=== PATIENT | female | born 1945 | race Caucasian/White ===

== ENCOUNTER 2016-04-21 16:43 | Emergency (ER) | payer MEDICARE ==
--- NOTE | 2016-04-21 18:09 | REP ---
Clinical: Trauma. Technique: AP, lateral, bilateral oblique and sunrise views of the left knee. Findings: Mild tricompartmental osteoarthritic degenerative changes are appreciated. No acute fracture dislocation. No effusion. Impression: Mild tricompartmental osteoarthritic degenerative changes. No acute fracture or dislocation. Signed by Sukhdeep Simon MD 04/21/2016 06:01 P
[2016-04-21] MEDS ORDERED: NORCO 5/325MG TABLET (BULK) As Ordered ONE (20:15)
--- NOTE | 2016-04-21 20:28 | EDDOCDS ---
Physician Documentation [facility] Name: Sandy Mills Age: 70 yrs Sex: Female : 1945 Arrival Date: 04/21/2016 Time: 16:43 Bed Triage 3 Private MD: Nils Contreras Disposition: 04/21/16 20:11 Discharged to Home/Self Care. Impression: Sprain of medial collateral ligament of left knee. - Condition is Stable. - Discharge Instructions: Knee Sprain, Knee Pain. - Prescriptions for Arrey 5- 325 mg Oral Tablet - take 1 tablet by ORAL route every 6 hours As needed MDD: 4 tabs; 12 tablet. - Medication Reconciliation, Local Pharmacy Hours form. - Follow up: Fredo Robbins; When: Call to arrange an appointment; Reason: Recheck today's complaints, Continuance of care. Follow up: Nils Tuttle; When: Call to arrange an appointment; Reason: Recheck today's complaints, Continuance of care. - Problem is new. - Symptoms are unchanged. Historical: - Allergies: SULFA (SULFONAMIDES) (Anaphylaxis); - Home Meds: 1. Lipitor 40 mg Oral tab 1 tab once daily 2. levothyroxine 25 mcg Oral tab 1 tab once daily 3. trazodone 50 mg Oral tab nightly 4. ibuprofen 600 mg oral tab as needed (Last dose: 04/21/2016 14:30) - PMHx: Thyroid problem; Hypercholesterolemia; insomnia; - PSHx: Hysterectomy; Arthroscopy, Knee- Right; - Social history: Smoking status: Patient states former smoker of tobacco. No barriers to communication noted, The patient speaks fluent Icelandic. - Family history: Not pertinent. - : The pt / caregiver states he / she is not on anticoagulants. Home medication list is obtained from the patient. - Exposure Risk Screening:: None identified. Vital Signs: 04/21 16:45 BP 142 / 71; Pulse 87; Resp 16; Temp 97.7(O); Pulse Ox 100% on R/A; Weight 67.13 kg / lr2 148 lbs; Height 5 ft. 4 in. (162.56 cm); Pain 8/10; 16:45 Body Mass Index 25.40 (67.13 kg, 162.56 cm) lr2 MDM: 17:41 Knee, Complete Ordered. EDMS 20:10 Jostin Wrap ordered. mo1 20:10 HYDROcodone-acetaminophen 4 pack- 5 mg-325 mg 1 packets PO Per package directions; mo1 Dispense with patient. 1 po q4h prn for pain ordered. 20:10 Knee, Complete Reviewed. mo1 Administered Medications: 20:17 Drug: HYDROcodone-acetaminophen 4 pack- 1 packets [hydrocodone 5 mg-acetaminophen 325 ms18 mg tablet (1 tabs)] {Co-Signature: mcp (Karina Graham RN).} Route: PO; Signatures: Dispatcher [employer] EDKaylen Mace RN RN kcs Peters, Mary, RN RN mcp Sav Hilario PA PA mo1 Gris Turner RN ms18 Karina Graham RN, mcp MTDD
--- NOTE | 2016-04-21 20:28 | EDDOCDS ---
Nurse's Notes [facility] Name: Sandy Mills Age: 70 yrs Sex: Female : 1945 Arrival Date: 04/21/2016 Time: 16:43 Bed Triage 3 Private MD: Nils Contreras Diagnosis: Sprain of medial collateral ligament of left knee Presentation: 04/21 17:03 Presenting complaint: Patient states: her left knee snapped today and since she has had kcs difficulty walking on it due to pain. Adult Sepsis Screening: The patient does not have new or worsening altered mentation. Patient's respiratory rate is less than 22. Systolic blood pressure is greater than 100. Patient has a qSOFA score of 0- Negative Sepsis Screen. Suicide/Homicide risk assessment- the patient denies having any suicidal and/or homicidal ideations and does not present with any other emotional, behavioral or mental health complaints. Status: Patient is not a sales and service consultant or dependent. Transition of care: patient was not received from another setting of care. 17:03 Acuity: TAYLOR Level 4 kcs 17:03 Method Of Arrival: Wheelchair kcs Triage Assessment: 17:06 General: Appears comfortable, obese, well developed, well nourished, well groomed, kcs Behavior is cooperative, pleasant. Pain: Location: left knee Pain At worst was 10 out of 10 on a pain scale. Neurological: Level of Consciousness is awake, alert. Respiratory: Airway is patent Respiratory effort is even, unlabored, Respiratory pattern is regular, symmetrical. Derm: Skin is intact, is healthy with good turgor, Skin is dry, Skin is normal. Historical: - Allergies: SULFA (SULFONAMIDES) (Anaphylaxis); - Home Meds: 1. Lipitor 40 mg Oral tab 1 tab once daily 2. levothyroxine 25 mcg Oral tab 1 tab once daily 3. trazodone 50 mg Oral tab nightly 4. ibuprofen 600 mg oral tab as needed (Last dose: 04/21/2016 14:30) - PMHx: Thyroid problem; Hypercholesterolemia; insomnia; - PSHx: Hysterectomy; Arthroscopy, Knee- Right; - Social history: Smoking status: Patient states former smoker of tobacco. No barriers to communication noted, The patient speaks fluent Occitan. - Family history: Not pertinent. - : The pt / caregiver states he / she is not on anticoagulants. Home medication list is obtained from the patient. - Exposure Risk Screening:: None identified. Screenin:25 Screening information is obtained from the patient. Fall risk: No risks identified. mcp Assistance ADL's: requires no assistance with activities of daily living. Abuse/DV Screen: The patient / caregiver reports he/she is: not in a situation that causes fear, pain or injury. Nutritional screening: No deficits noted. Advance Directives: There is no active DNR order. home support is adequate. Assessment: 20:24 General: Appears uncomfortable, Behavior is cooperative. Pain: Location: left knee Pain mcp currently is 5 out of 10 on a pain scale. Neurological: No deficits noted. Respiratory: Airway is patent Respiratory effort is even, unlabored. Derm: Skin is pink, warm & dry. Musculoskeletal: Circulation, motion, and sensation intact. Vital Signs: 16:45 BP 142 / 71; Pulse 87; Resp 16; Temp 97.7(O); Pulse Ox 100% on R/A; Weight 67.13 kg; lr2 Height 5 ft. 4 in. (162.56 cm); Pain 8/10; 16:45 Body Mass Index 25.40 (67.13 kg, 162.56 cm) lr2 Vitals: 16:45 Log In Time: April 21, 2016 at 16:43. lr2 ED Course: 16:45 Patient visited by Yumiko Brooks. lr2 16:45 Nils Contreras is Private Physician. lr2 16:45 Patient moved to Waiting lr2 16:45 Patient moved to Pre RCE lr2 17:04 Triage Initiated kcs 18:19 Knee, Complete Returned. EDMS 19:13 Patient moved to Triage 3 ms18 19:18 Patient visited by Gris Turner RN. ms18 19:48 Sav Hilario PA is PHCP. mo1 19:48 Pablo Bell MD is Attending Physician. mo1 20:10 Patient visited by Sav Hilario PA. mo1 20:11 Fredo Robbins is Referral Physician. mo1 20:11 Nils Tuttle is Referral Physician. mo1 20:25 The patient / caregiver is instructed regarding the plan of care and ED course. Patient mcp has correct armband on for positive identification. Bed in low position. Call light in reach. 20:25 No IV's were initiated during this patient's visit. No procedures done that require mcp assistance. 20:25 Jostin wrap to given to pt to apply to left knee when gets home per pts request. mcp Administered Medications: 20:17 Drug: HYDROcodone-acetaminophen 4 pack- 1 packets [hydrocodone 5 mg-acetaminophen 325 ms18 mg tablet (1 tabs)] {Co-Signature: mcp (Karina Graham RN).} Route: PO; Order Results: Radiology Order: Knee, Complete Test: Knee, Complete REASON FOR EXAMINATION: Trauma; Clinical: Trauma.; ; Technique: AP, lateral, bilateral oblique and sunrise views of the left knee.; ; Findings:; Mild tricompartmental osteoarthritic degenerative changes are appreciated. No; acute fracture dislocation. No effusion.; ; Impression:; Mild tricompartmental osteoarthritic degenerative changes.; No acute fracture or dislocation.; ; ; Signed by; Sukhdeep Simon MD 04/21/2016 06:01 P; Outcome: 20:11 Discharge ordered by Provider. mo1 20:26 Discharge Assessment: patient administered narcotics - no. The following High Risk [facility] Discharge criteria are identified: None. Discharged to home ambulatory, with family. Condition: stable. Discharge instructions given to patient, Instructed on discharge instructions, follow up and referral plans. medication usage, no driving heavy equipment, no drinking with medication, Demonstrated understanding of instructions, medications, Pt was receptive of discharge instructions/ teaching. Prescriptions given X 1. No special radiology studies were completed. Property sent home with patient. 20:27 Patient left the ED. [facility] Signatures: Dispatcher [employer] EDKaylen Maec RN RN kcs Peters, Mary, RN RN mcp O'Hagan, Michael, PA PA mo1 Gris Turner RN RN ms18 Yumiko Brooks lr2 Karina Graham RN, mcp MTDD
--- NOTE | 2016-04-23 21:28 | EDDOCDS ---
Physician Documentation [facility] Name: Sandy Mills Age: 70 yrs Sex: Female : 1945 Arrival Date: 04/21/2016 Time: 16:43 Bed Triage 3 Private MD: Nils Contreras Disposition: 04/21/16 20:11 Discharged to Home/Self Care. Impression: Sprain of medial collateral ligament of left knee. - Condition is Stable. - Discharge Instructions: Knee Sprain, Knee Pain. - Prescriptions for Kennard 5- 325 mg Oral Tablet - take 1 tablet by ORAL route every 6 hours As needed MDD: 4 tabs; 12 tablet. - Medication Reconciliation, Local Pharmacy Hours form. - Follow up: Fredo Robbins; When: Call to arrange an appointment; Reason: Recheck today's complaints, Continuance of care. Follow up: Nils Tuttle; When: Call to arrange an appointment; Reason: Recheck today's complaints, Continuance of care. - Problem is new. - Symptoms are unchanged. Historical: - Allergies: SULFA (SULFONAMIDES) (Anaphylaxis); - Home Meds: 1. Lipitor 40 mg Oral tab 1 tab once daily 2. levothyroxine 25 mcg Oral tab 1 tab once daily 3. trazodone 50 mg Oral tab nightly 4. ibuprofen 600 mg oral tab as needed (Last dose: 04/21/2016 14:30) - PMHx: Thyroid problem; Hypercholesterolemia; insomnia; - PSHx: Hysterectomy; Arthroscopy, Knee- Right; - Social history: Smoking status: Patient states former smoker of tobacco. No barriers to communication noted, The patient speaks fluent Sinhala. - Family history: Not pertinent. - : The pt / caregiver states he / she is not on anticoagulants. Home medication list is obtained from the patient. - Exposure Risk Screening:: None identified. Vital Signs: 04/21 16:45 BP 142 / 71; Pulse 87; Resp 16; Temp 97.7(O); Pulse Ox 100% on R/A; Weight 67.13 kg / lr2 148 lbs; Height 5 ft. 4 in. (162.56 cm); Pain 8/10; 16:45 Body Mass Index 25.40 (67.13 kg, 162.56 cm) lr2 MDM: 17:41 Knee, Complete Ordered. EDMS 20:10 Jostin Wrap ordered. mo1 20:10 HYDROcodone-acetaminophen 4 pack- 5 mg-325 mg 1 packets PO Per package directions; mo1 Dispense with patient. 1 po q4h prn for pain ordered. 20:10 Knee, Complete Reviewed. mo1 04/22 12:20 T-Sheet-- Draft Copy was scanned into [email or web address] and attached to record. gb Administered Medications: 04/21 20:17 Drug: HYDROcodone-acetaminophen 4 pack- 1 packets [hydrocodone 5 mg-acetaminophen 325 ms18 mg tablet (1 tabs)] {Co-Signature: cristina (Karina Graham RN).} Route: PO; Signatures: Dispatcher [employer] EDMS Kaylen Diaz RN RN Karina Houser RN RN mcp Barnhardt, Gloria, Reg Reg gb Sav Hilario PA PA mo1 Gris Turner RN ms18 Karina Graham RN, mcp The chart was reviewed and I authenticate all verbal orders and agree with the evaluation and treatment provided.Attachments: 04/22 12:20 T-Sheet-- Draft Copy gb Chart Complete MTDD
--- NOTE | 2016-04-23 21:28 | EDDOCDS ---
Nurse's Notes [facility] Name: Sandy Mills Age: 70 yrs Sex: Female : 1945 Arrival Date: 04/21/2016 Time: 16:43 Bed Triage 3 Private MD: Nils Contreras Diagnosis: Sprain of medial collateral ligament of left knee Presentation: 04/21 17:03 Presenting complaint: Patient states: her left knee snapped today and since she has had kcs difficulty walking on it due to pain. Adult Sepsis Screening: The patient does not have new or worsening altered mentation. Patient's respiratory rate is less than 22. Systolic blood pressure is greater than 100. Patient has a qSOFA score of 0- Negative Sepsis Screen. Suicide/Homicide risk assessment- the patient denies having any suicidal and/or homicidal ideations and does not present with any other emotional, behavioral or mental health complaints. Status: Patient is not a support services manager or dependent. Transition of care: patient was not received from another setting of care. 17:03 Acuity: TAYLOR Level 4 kcs 17:03 Method Of Arrival: Wheelchair kcs Triage Assessment: 17:06 General: Appears comfortable, obese, well developed, well nourished, well groomed, kcs Behavior is cooperative, pleasant. Pain: Location: left knee Pain At worst was 10 out of 10 on a pain scale. Neurological: Level of Consciousness is awake, alert. Respiratory: Airway is patent Respiratory effort is even, unlabored, Respiratory pattern is regular, symmetrical. Derm: Skin is intact, is healthy with good turgor, Skin is dry, Skin is normal. Historical: - Allergies: SULFA (SULFONAMIDES) (Anaphylaxis); - Home Meds: 1. Lipitor 40 mg Oral tab 1 tab once daily 2. levothyroxine 25 mcg Oral tab 1 tab once daily 3. trazodone 50 mg Oral tab nightly 4. ibuprofen 600 mg oral tab as needed (Last dose: 04/21/2016 14:30) - PMHx: Thyroid problem; Hypercholesterolemia; insomnia; - PSHx: Hysterectomy; Arthroscopy, Knee- Right; - Social history: Smoking status: Patient states former smoker of tobacco. No barriers to communication noted, The patient speaks fluent Mohawk. - Family history: Not pertinent. - : The pt / caregiver states he / she is not on anticoagulants. Home medication list is obtained from the patient. - Exposure Risk Screening:: None identified. Screenin:25 Screening information is obtained from the patient. Fall risk: No risks identified. mcp Assistance ADL's: requires no assistance with activities of daily living. Abuse/DV Screen: The patient / caregiver reports he/she is: not in a situation that causes fear, pain or injury. Nutritional screening: No deficits noted. Advance Directives: There is no active DNR order. home support is adequate. Assessment: 20:24 General: Appears uncomfortable, Behavior is cooperative. Pain: Location: left knee Pain mcp currently is 5 out of 10 on a pain scale. Neurological: No deficits noted. Respiratory: Airway is patent Respiratory effort is even, unlabored. Derm: Skin is pink, warm & dry. Musculoskeletal: Circulation, motion, and sensation intact. Vital Signs: 16:45 BP 142 / 71; Pulse 87; Resp 16; Temp 97.7(O); Pulse Ox 100% on R/A; Weight 67.13 kg; lr2 Height 5 ft. 4 in. (162.56 cm); Pain 8/10; 16:45 Body Mass Index 25.40 (67.13 kg, 162.56 cm) lr2 Vitals: 16:45 Log In Time: April 21, 2016 at 16:43. lr2 ED Course: 16:45 Patient visited by Yumiko Brooks. lr2 16:45 Nils Contreras is Private Physician. lr2 16:45 Patient moved to Waiting lr2 16:45 Patient moved to Pre RCE lr2 17:04 Triage Initiated kcs 18:19 Knee, Complete Returned. EDMS 19:13 Patient moved to Triage 3 ms18 19:18 Patient visited by Gris Turner RN. ms18 19:48 Sav Hilario PA is PHCP. mo1 19:48 Pablo Bell MD is Attending Physician. mo1 20:10 Patient visited by Sav Hilario PA. mo1 20:11 Fredo Robbins is Referral Physician. mo1 20:11 Nils Tuttle is Referral Physician. mo1 20:25 The patient / caregiver is instructed regarding the plan of care and ED course. Patient mcp has correct armband on for positive identification. Bed in low position. Call light in reach. 20:25 No IV's were initiated during this patient's visit. No procedures done that require mcp assistance. 20:25 Jostin wrap to given to pt to apply to left knee when gets home per pts request. [facility] 04/22 12:20 T-Sheet-- Draft Copy was scanned into [employer] and attached to record. gb Administered Medications: 04/21 20:17 Drug: HYDROcodone-acetaminophen 4 pack- 1 packets [hydrocodone 5 mg-acetaminophen 325 ms18 mg tablet (1 tabs)] {Co-Signature: [facility] (Karina Graham RN).} Route: PO; Order Results: Radiology Order: Knee, Complete Test: Knee, Complete REASON FOR EXAMINATION: Trauma; Clinical: Trauma.; ; Technique: AP, lateral, bilateral oblique and sunrise views of the left knee.; ; Findings:; Mild tricompartmental osteoarthritic degenerative changes are appreciated. No; acute fracture dislocation. No effusion.; ; Impression:; Mild tricompartmental osteoarthritic degenerative changes.; No acute fracture or dislocation.; ; ; Signed by; Sukhdeep Simon MD 04/21/2016 06:01 P; Outcome: 20:11 Discharge ordered by Provider. mo1 20:26 Discharge Assessment: patient administered narcotics - no. The following High Risk [facility] Discharge criteria are identified: None. Discharged to home ambulatory, with family. Condition: stable. Discharge instructions given to patient, Instructed on discharge instructions, follow up and referral plans. medication usage, no driving heavy equipment, no drinking with medication, Demonstrated understanding of instructions, medications, Pt was receptive of discharge instructions/ teaching. Prescriptions given X 1. No special radiology studies were completed. Property sent home with patient. 20:27 Patient left the ED. [facility] Signatures: Dispatcher [employer] EDMS Kaylen Diaz RN RN kcs Peters, Mary, RN RN mcp Barnhardt, Gloria, Reg Reg gb Sav Hilario PA PA mo1 Gris Turner RN RN msYumiko Morgan lr2 Karina Graham RN, mcp Chart Complete MTDD
--- NOTE | 2016-04-23 21:28 | EDDOCDS ---
Physician Documentation [facility] Name: Sandy Mills Age: 70 yrs Sex: Female : 1945 Arrival Date: 04/21/2016 Time: 16:43 Bed Triage 3 Private MD: Nils Contreras Disposition: 04/21/16 20:11 Discharged to Home/Self Care. Impression: Sprain of medial collateral ligament of left knee. - Condition is Stable. - Discharge Instructions: Knee Sprain, Knee Pain. - Prescriptions for [place] 5- 325 mg Oral Tablet - take 1 tablet by ORAL route every 6 hours As needed MDD: 4 tabs; 12 tablet. - Medication Reconciliation, Local Pharmacy Hours form. - Follow up: Fredo Robbins; When: Call to arrange an appointment; Reason: Recheck today's complaints, Continuance of care. Follow up: Nils Tuttle; When: Call to arrange an appointment; Reason: Recheck today's complaints, Continuance of care. - Problem is new. - Symptoms are unchanged. Historical: - Allergies: SULFA (SULFONAMIDES) (Anaphylaxis); - Home Meds: 1. Lipitor 40 mg Oral tab 1 tab once daily 2. levothyroxine 25 mcg Oral tab 1 tab once daily 3. trazodone 50 mg Oral tab nightly 4. ibuprofen 600 mg oral tab as needed (Last dose: 04/21/2016 14:30) - PMHx: Thyroid problem; Hypercholesterolemia; insomnia; - PSHx: Hysterectomy; Arthroscopy, Knee- Right; - Social history: Smoking status: Patient states former smoker of tobacco. No barriers to communication noted, The patient speaks fluent Korean. - Family history: Not pertinent. - : The pt / caregiver states he / she is not on anticoagulants. Home medication list is obtained from the patient. - Exposure Risk Screening:: None identified. Vital Signs: 04/21 16:45 BP 142 / 71; Pulse 87; Resp 16; Temp 97.7(O); Pulse Ox 100% on R/A; Weight 67.13 kg / lr2 148 lbs; Height 5 ft. 4 in. (162.56 cm); Pain 8/10; 16:45 Body Mass Index 25.40 (67.13 kg, 162.56 cm) lr2 MDM: 17:41 Knee, Complete Ordered. EDMS 20:10 Jostin Wrap ordered. mo1 20:10 HYDROcodone-acetaminophen 4 pack- 5 mg-325 mg 1 packets PO Per package directions; mo1 Dispense with patient. 1 po q4h prn for pain ordered. 20:10 Knee, Complete Reviewed. mo1 04/22 12:20 T-Sheet-- Draft Copy was scanned into [employer] and attached to record. gb Administered Medications: 04/21 20:17 Drug: HYDROcodone-acetaminophen 4 pack- 1 packets [hydrocodone 5 mg-acetaminophen 325 ms18 mg tablet (1 tabs)] {Co-Signature: cristina (Karina Graham RN).} Route: PO; Signatures: Dispatcher [employer] EDMS Kaylen Diaz RN RN Karina Houser RN RN mcp Barnhardt, Gloria, Reg Reg gb Sav Hilario PA PA mo1 Gris Turner RN ms18 Karina Graham RN, mcp The chart was reviewed and I authenticate all verbal orders and agree with the evaluation and treatment provided.Attachments: 04/22 12:20 T-Sheet-- Draft Copy gb Chart Complete MTDD
== END 2016-04-21 20:27 | disposition home or self-care (01) ==
LOC: M ED 16:43
DX: S83.412A Sprain of medial collateral ligament of left knee, initial encounter (principal); X50.0XXA Overexertion from strenuous movement or load, initial encounter; Y92.018 Other place in single-family (private) house as the place of occurrence of the external cause; Y93.89 Activity, other specified; Y99.8 Other external cause status; E07.9 Disorder of thyroid, unspecified; E78.00 Pure hypercholesterolemia, unspecified; G47.00 Insomnia, unspecified; Z79.899 Other long term (current) drug therapy; Z88.2 Allergy status to sulfonamides; Z87.891 Personal history of nicotine dependence

== ENCOUNTER → 2016-06-04 | Outpatient (CLI) | payer MEDICARE ==
--- NOTE | 2016-06-04 14:46 | REP ---
UNILATERAL DIAGNOSTIC MAMMOGRAM OF THE RIGHT BREAST WITH RIGHT BREAST ULTRASOUND: Unilateral right breast performed in the MLO and CC projections with additional spot compression views. Comparison is made with multiple prior exams, most recently 11/28/2015. Moderate fibroglandular tissue in the right breast is stable with no new mass or clustered microcalcifications. Real-time sonographic evaluation of the right breast is performed at the 6-o'clock position and compared to a prior study of 11/28/2015. The previously noted small cystic structures are no longer present. There are mildly dilated ducts in the retroareolar region. IMPRESSION: ACR 2 benign. No suspicious mass or clustered microcalcifications on the mammogram. Repeat ultrasound is performed and compared to prior study of 11/28/2015 and the previously noted small cystic structures have resolved in that region of 6-o'clock position right breast. Recommend followup mammogram bilaterally in October 2016. BI-RADS/ACR category 2 mammogram. Benign finding(s). Routine annual screening mammography (for women over age 40). This mammogram was interpreted with the aid of an FDA-approved computer-aided detection system. A. Negative x-ray reports should not delay biopsy if a dominant or clinically suspicious mass is present. B. Four to eight percent of cancers are not identified by x-ray. C. Adenosis and dense breasts may obscure an underlying neoplasm. The patient states she/he had a clinical breast exam in October 2015. The patient letter being requested is M2. Signed by Daniel Morrison MD 06/04/2016 04:54 P
== END ==
LOC: M RAD 10:28
PROVIDERS: ATTEND Nurse Practitioner Women's Health
DX: N63 Unspecified lump in breast (principal); R92.8 Other abnormal and inconclusive findings on diagnostic imaging of breast
CPT/HCPCS: 76642; G0206

== ENCOUNTER → 2016-07-28 | Outpatient (CLI) | payer MEDICARE ==
[2016-07-28 11:49] LABS: MEAN CORPUSCULAR HEMOGLOBIN 32.2 pg (27.0-33.0); MEAN CORPUSCULAR HGB CONC 32.4 g/dl (32.0-36.5); MEAN CORPUSCULAR VOLUME 99.6 fl (80.0-96.0); RED CELL DISTRIBUTION WIDTH 13.1 % (11.5-14.5); WHITE BLOOD COUNT 6.2 K/mm3 (4.0-10.0)
[2016-07-28 11:54] LABS: ALBUMIN 3.7 GM/DL (3.2-5.2); ALBUMIN/GLOBULIN RATIO 1.23 (1.00-1.93); ALKALINE PHOSPHATASE 92 U/L (45-117); ALT/SGPT 14 U/L (12-78); ANION GAP 7 MEQ/L (8-16); AST/SGOT 13 U/L (15-37); BILIRUBIN,TOTAL 0.4 MG/DL (0.2-1.0); BLOOD UREA NITROGEN 21 MG/DL (7-18); CARBON DIOXIDE LEVEL 29 MEQ/L (21-32); CHLORIDE LEVEL 106 MEQ/L (98-107); CREATININE FOR GFR 0.87 MG/DL (0.55-1.02); GLOMERULAR FILTRATION RATE > 60.0 (>45); GLUCOSE, FASTING 94 MG/DL (80-110); POTASSIUM SERUM 4.7 MEQ/L (3.5-5.1); SODIUM LEVEL 142 MEQ/L (136-145); TOTAL PROTEIN 6.7 GM/DL (6.4-8.2)
== END ==
LOC: M WUC 08:38
PROVIDERS: ATTEND Nurse Practitioner Family
DX: Z01.812 Encounter for preprocedural laboratory examination (principal)

== ENCOUNTER → 2016-09-09 | Outpatient (CLI) | payer OTHER ==
[~2016-09-09] MED LIST: ALPR0.5T3; CYCL5TAB PO; DOXY100C37 PO; IBUP-1022 PO; LEVO25TA5 PO; LIPI20TA PO; ROBA500T PO
== END ==
LOC: M WUC 08:47
PROVIDERS: ATTEND Family Medicine
DX: E78.5 Hyperlipidemia, unspecified (principal)

== ENCOUNTER 2016-09-27 16:04 | Emergency (ER) | payer MEDICARE, OTHER ==
[~2016-09-27] VITALS: Ht 162.6 cm; Wt 107.7 kg
[2016-09-27 16:04] VITALS: BP 153/88
[2016-09-27] MEDS ORDERED: LIPI20TA PO (16:15)
[2016-09-27] MEDS ORDERED: LEVO25TA5 PO (16:15)
[2016-09-27] MEDS ORDERED: ALPR0.5T3 (16:15)
[2016-09-27] MEDS ORDERED: DOXY100C37 PO (16:25)
[2016-09-27] MEDS ORDERED: DOXYCYCLINE HYCLATE 100 MG TAB PO ONE (16:30)
[2016-09-30 14:14] LABS: Lyme Disease IgG Ab 18 kDa Ban Absent (.); Lyme Disease IgG Ab 23 kDa Ban Present (.); Lyme Disease IgG Ab 28 kDa Ban Absent (.); Lyme Disease IgG Ab 30 kDa Ban Absent (.); Lyme Disease IgG Ab 39 kDa Ban Present (.); Lyme Disease IgG Ab 41 kDa Ban Present (.); Lyme Disease IgG Ab 45 kDa Ban Absent (.); Lyme Disease IgG Ab 58 kDa Ban Absent (.); Lyme Disease IgG Ab 66 kDa Ban Absent (.); Lyme Disease IgG Ab 93 kDa Ban Absent (.); Lyme Disease IgG West Blot Int Negative (.); Lyme Disease IgG/IgM Antibodie 1.69 ISR (0.00-0.90); Lyme Disease IgM Ab 23 kDa Ban Present (.); Lyme Disease IgM Ab 39 kDa Ban Absent (.); Lyme Disease IgM Ab 41 kDa Ban Absent (.); Lyme Disease IgM West Blot Int Negative (.)
== END 2016-09-27 16:34 | disposition home or self-care (01) ==
LOC: M ED 16:04
DX: R21 Rash and other nonspecific skin eruption (principal)

== ENCOUNTER 2016-11-21 08:07 | Emergency (ER) | payer OTHER ==
[~2016-11-21] VITALS: Ht 162.6 cm; Wt 105.0 kg
[~2016-11-21 08:07] MED LIST changes: -CYCL5TAB PO; -IBUP-1022 PO; -ROBA500T PO
[2016-11-21 08:50] VITALS: BP 145/78
[2016-11-21] MEDS ORDERED: CYCL5TAB PO (09:16)
[2016-11-21] MEDS ORDERED: IBUP-1022 PO (09:16)
[2016-11-21] MEDS ORDERED: ROBA500T PO (09:16)
== END 2016-11-21 09:36 | disposition home or self-care (01) ==
LOC: M ED 08:07
DX: M62.830 Muscle spasm of back (principal)

== ENCOUNTER → 2016-11-24 | Outpatient (CLI) | payer OTHER ==
[~2016-11-24] MED LIST changes: +CYCL5TAB PO; +IBUP-1022 PO; +ROBA500T PO
--- NOTE | 2016-11-24 15:57 | REP ---
LUMBAR SPINE, SEVEN VIEWS: HISTORY: Back pain. COMPARISON: 04/01/07. There is no acute fracture or subluxation. The L3-4 through L5-S1 intervertebral discs are decreased in height consistent with disc degeneration. Osteophytes are present on L1 through 5. There is narrowing of the L4-5 and L5-S1 facet joints. IMPRESSION: Degenerative change as described above. Signed by Eran Tolentino MD 11/24/2016 03:59 P
== END ==
LOC: M WUC 10:26
PROVIDERS: ATTEND Physician Assistant
DX: M54.5 Low back pain (principal)

== ENCOUNTER → 2017-04-28 | Outpatient (CLI) | payer OTHER | LOC: M WHC 13:00 | DX: Z12.31 Encounter for screening mammogram for malignant neoplasm of breast (principal); Z80.3 Family history of malignant neoplasm of breast; Z78.0 Asymptomatic menopausal state | CPT/HCPCS: 77067 ==

== ENCOUNTER → 2017-05-18 | Outpatient (CLI) | payer OTHER ==
[2017-05-18 09:16] LABS: BASO % 0.2 % (0.0-1.0); EOS % 0.8 % (0.0-3.0); HEMATOCRIT 42.5 % (36.0-47.0); IMMATURE GRANULOCYTE % 0.2 % (0-3.0); LYMPH # 1.7 10^3/uL (1.5-4.5); LYMPH % 33.9 % (24.0-44.0); MEAN CORPUSCULAR HEMOGLOBIN 32.6 pg (27.0-33.0); MEAN CORPUSCULAR HGB CONC 32.9 g/dl (32.0-36.5); MEAN CORPUSCULAR VOLUME 98.8 fl (80.0-96.0); MONO # 0.4 10^3/uL (0.0-0.8); MONO % 7.2 % (0.0-5.0); NEUTROPHILS # 2.9 10^3/uL (1.8-7.7); NEUTROPHILS % 57.7 % (36.0-66.0); PLATELET COUNT, AUTOMATED 236 10^3/uL (150-450)
[2017-05-18 09:50] LABS: ALBUMIN/GLOBULIN RATIO 1.33 (1.00-1.93); ALKALINE PHOSPHATASE 101 U/L (45-117); ALT/SGPT 15 U/L (12-78); ANION GAP 8 MEQ/L (8-16); AST/SGOT 14 U/L (7-37); BILIRUBIN,TOTAL 0.4 MG/DL (0.2-1.0); BLOOD UREA NITROGEN 18 MG/DL (7-18); CALCIUM LEVEL 9.2 MG/DL (8.8-10.2); CARBON DIOXIDE LEVEL 28 MEQ/L (21-32); CHLORIDE LEVEL 107 MEQ/L (98-107); CHOLESTEROL LEVEL 214 MG/DL (<200); CREATININE FOR GFR 0.88 MG/DL (0.55-1.30); FREE T4 0.89 NG/DL (0.76-1.46); GLOMERULAR FILTRATION RATE > 60.0 (>39); GLUCOSE, FASTING 96 MG/DL (70-100); HDL CHOLESTEROL 55 MG/DL (>40); LDL CHOLESTEROL 134.2 MG/DL (<100); NON-HDL-C 159 MG/DL; POTASSIUM SERUM 5.1 MEQ/L (3.5-5.1); SODIUM LEVEL 143 MEQ/L (136-145); TRIGLYCERIDES LEVEL 124 MG/DL (<150)
[2017-05-18 11:44] LABS: FREE T3 2.6 PG/ML (2.2-4.0)
[2017-05-21 00:07] LABS: VITAMIN D 1,25 DIHYDROXY 43.2 pg/mL (19.9-79.3)
== END ==
LOC: M WUC 08:23
DX: E03.9 Hypothyroidism, unspecified (principal); E55.9 Vitamin D deficiency, unspecified; E78.4 Other hyperlipidemia
CPT/HCPCS: 84443

== ENCOUNTER 2017-07-28 09:34 | Emergency (ER) | payer MEDICARE, OTHER | END 2017-07-28 10:15 | disposition home or self-care (01) | LOC: M ED 09:34 | DX: S10.86XA Insect bite of other specified part of neck, initial encounter (principal); S20.96XA Insect bite (nonvenomous) of unspecified parts of thorax, initial encounter; S40.861A Insect bite (nonvenomous) of right upper arm, initial encounter; S40.862A Insect bite (nonvenomous) of left upper arm, initial encounter; L08.9 Local infection of the skin and subcutaneous tissue, unspecified; W57.XXXA Bitten or stung by nonvenomous insect and other nonvenomous arthropods, initial encounter; Y92.9 Unspecified place or not applicable; Y93.9 Activity, unspecified; Y99.9 Unspecified external cause status; E78.00 Pure hypercholesterolemia, unspecified; E03.9 Hypothyroidism, unspecified; F41.9 Anxiety disorder, unspecified; F32.9 Major depressive disorder, single episode, unspecified; Z79.899 Other long term (current) drug therapy; Z88.2 Allergy status to sulfonamides | CPT/HCPCS: 99282 ==

== ENCOUNTER → 2017-12-16 | Outpatient (CLI) | payer MEDICARE ==
[2017-12-16 16:33] LABS: ANION GAP 5 MEQ/L (8-16); BLOOD UREA NITROGEN 19 MG/DL (7-18); CARBON DIOXIDE LEVEL 28 MEQ/L (21-32); CHLORIDE LEVEL 107 MEQ/L (98-107); CREATININE FOR GFR 0.98 MG/DL (0.55-1.30); GLOMERULAR FILTRATION RATE 59.7 (>39); GLUCOSE, FASTING 110 MG/DL (70-100); POTASSIUM SERUM 5.1 MEQ/L (3.5-5.1); SODIUM LEVEL 140 MEQ/L (136-145)
== END ==
LOC: M WUC 10:42
DX: F34.1 Dysthymic disorder (principal)
CPT/HCPCS: 80048

== ENCOUNTER → 2017-12-23 | Outpatient (CLI) | payer MEDICARE ==
[~2017-12-23] MED LIST changes: -ALPR0.5T3; -CYCL5TAB PO; -DOXY100C37 PO; -IBUP-1022 PO; +ISOVUE-370 76% 100ML VIAL (Q9967) As Ordered; -LEVO25TA5 PO; -LIPI20TA PO; -ROBA500T PO
== END ==
LOC: M RAD 10:24
DX: R91.8 Other nonspecific abnormal finding of lung field (principal)
CPT/HCPCS: Q9967

== ENCOUNTER → 2017-12-30 | Outpatient (CLI) | payer MEDICARE ==
[2017-12-30 08:46] LABS: HEMATOCRIT 43.7 % (36.0-47.0); HEMOGLOBIN 14.4 g/dl (12.0-15.5); MEAN CORPUSCULAR HEMOGLOBIN 33.3 pg (27.0-33.0); MEAN CORPUSCULAR VOLUME 100.9 fl (80.0-96.0); PLATELET COUNT, AUTOMATED 231 10^3/uL (150-450); RED BLOOD COUNT 4.33 10^6/uL (4.00-5.40); RED CELL DISTRIBUTION WIDTH 12.3 % (11.5-14.5); WHITE BLOOD COUNT 6.2 10^3/uL (4.0-10.0)
[2017-12-30 08:58] LABS: INR 0.94; PROTHROMBIN TIME 12.7 SECONDS (12.1-14.4)
[2017-12-30 09:10] LABS: ALBUMIN 4.1 GM/DL (3.2-5.2); ALBUMIN/GLOBULIN RATIO 1.32 (1.00-1.93); ALKALINE PHOSPHATASE 132 U/L (45-117); ALT/SGPT 16 U/L (12-78); ANION GAP 7 MEQ/L (8-16); AST/SGOT 14 U/L (7-37); BILIRUBIN,TOTAL 0.4 MG/DL (0.2-1.0); BLOOD UREA NITROGEN 17 MG/DL (7-18); CALCIUM LEVEL 9.5 MG/DL (8.8-10.2); CARBON DIOXIDE LEVEL 27 MEQ/L (21-32); CHLORIDE LEVEL 106 MEQ/L (98-107); CREATININE FOR GFR 1.01 MG/DL (0.55-1.30); GLOMERULAR FILTRATION RATE 57.7 (>39); GLUCOSE, FASTING 105 MG/DL (70-100); POTASSIUM SERUM 4.8 MEQ/L (3.5-5.1); SODIUM LEVEL 140 MEQ/L (136-145); TOTAL PROTEIN 7.2 GM/DL (6.4-8.2)
[2017-12-30 13:13] LABS: ERYTHROCYTE SEDIMENTATION RATE 18 mm/hr (0-30)
== END ==
LOC: M LAB 08:13
DX: Z01.818 Encounter for other preprocedural examination (principal); M17.12 Unilateral primary osteoarthritis, left knee; F33.9 Major depressive disorder, recurrent, unspecified; E78.00 Pure hypercholesterolemia, unspecified; Z79.01 Long term (current) use of anticoagulants
CPT/HCPCS: 71046

== ENCOUNTER 2018-01-19 06:43 | Inpatient (IN) | payer MEDICARE ==
[~2018-01-19 06:43] MED LIST changes: +BUPIVACAINE/DEXTROSE 0.75% 2 ML AMP As Ordered; -ISOVUE-370 76% 100ML VIAL (Q9967) As Ordered; +LIDOCAINE 2% INJ 100 MG/5 ML SDV (FOR ANES.) As Ordered; +MIDAZOLAM INJ 2 MG/2 ML VIAL (J2250) As Ordered; +ONDANSETRON 4MG/2ML VIAL (J2405) As Ordered; +PROPOFOL 500 MG/50 ML VIAL As Ordered; +dexameTHASONE 4 MG/ML 1ML VIAL (J1100) As Ordered; +fentaNYL 100 MCG/2 ML INJECTION (J3010) As Ordered
[2018-01-19] MEDS ORDERED: ceFAZolin SOD 1 GM in D5W MINI-BAG PLUS 50 ML IV (07:00)
[2018-01-19] MEDS: LR 1,000 ML IV ×3 (07:40→14:44)
[2018-01-19] MEDS ORDERED: MIDAZOLAM INJ 2 MG/2 ML VIAL (J2250) As Ordered (07:59)
[2018-01-19] MEDS ORDERED: fentaNYL 100 MCG/2 ML INJECTION (J3010) As Ordered (07:59)
[2018-01-19] MEDS: fentaNYL 100 MCG/2 ML INJECTION (J3010) IV (08:56)
[2018-01-19] MEDS: MIDAZOLAM INJ 2 MG/2 ML VIAL (J2250) IV (08:56)
[2018-01-19] MEDS ORDERED: BUPIVACAINE LIPOSOME/PF 1.3% 20ML VIAL (13.3MG/ML)(EXPAREL)(C9290 PER1MG) As Ordered (10:03)
[2018-01-19] MEDS: ceFAZolin 1GM INJ (J0690 PER 500MG) As Ordered (10:03)
[2018-01-19] MEDS: ceFAZolin SOD 1 GM in D5W MINI-BAG PLUS 50 ML IV ×2 (10:11→17:36)
[2018-01-19] MEDS ORDERED: PHENYLephrine HCL 500 MCG/5 ML (100MCG/ML) SYRINGE (J2370) As Ordered (10:49)
[2018-01-19] MEDS ORDERED: PROPOFOL 200 MG/20 ML VIAL As Ordered ×2 (11:15→11:37)
[2018-01-19] MEDS ORDERED: LIDOCAINE 1% MDV 20ML VIAL (11:26)
[2018-01-19] MEDS ORDERED: ROPIvacaine 0.5% 30 ML INJECTION (J2795 PER 1MG) (11:26)
[2018-01-19] MEDS: EPINEPHrine INJ 1 MG/ML 1ML AMP As Ordered (11:33)
[2018-01-19] MEDS: TRANEXAMIC ACID 100 MG/ML 10ML VIAL As Ordered (11:33)
[2018-01-19] MEDS ORDERED: MORPHINE 1MG/ML IN 0.9% NACL 100ML IV BAG As Ordered (12:14)
[2018-01-19] MEDS: MORPHINE 1MG/ML IN 0.9% NACL 100ML IV BAG IV (12:20)
[2018-01-19] MEDS ORDERED: ONDANSETRON 4MG/2ML VIAL (J2405) IV ×3 (12:30→12:45)
[2018-01-19] MEDS ORDERED: MORPHINE 10 MG/ML 1ML VIAL (J2270) IV (12:30)
[2018-01-19] MEDS ORDERED: PERCOCET 5MG/325MG TAB PO (12:30)
[2018-01-19] MEDS ORDERED: fentaNYL 100 MCG/2 ML INJECTION (J3010) IV (12:30)
[2018-01-19] MEDS ORDERED: EPIDURAL/PCA KEYS XX (12:45)
[2018-01-19] MEDS ORDERED: NALOXONE INJ 0.4 MG/1 ML VIAL (J2310) IV (12:45)
[2018-01-19] MEDS ORDERED: FLEET ENEMA PR (12:45)
[2018-01-19] MEDS ORDERED: diphenhydrAMINE INJ 50MG/ML VIAL (J1200) IV (12:45)
[2018-01-19] MEDS ORDERED: ACETAMINOPHEN TAB 650MG DOSE (2X325MG) PO (12:45)
[2018-01-19] MEDS ORDERED: NALBUPHINE HCL 10 MG/ML AMP (J2300) IV (12:45)
[2018-01-19 13:54] LABS: HEMATOCRIT 43.7 % (36.0-47.0); MEAN CORPUSCULAR HEMOGLOBIN 32.9 pg (27.0-33.0); MEAN CORPUSCULAR VOLUME 102.8 fl (80.0-96.0); PLATELET COUNT, AUTOMATED 196 10^3/uL (150-450); RED BLOOD COUNT 4.25 10^6/uL (4.00-5.40); RED CELL DISTRIBUTION WIDTH 12.1 % (11.5-14.5); WHITE BLOOD COUNT 8.3 10^3/uL (4.0-10.0)
[2018-01-19 14:04] LABS: ANION GAP 4 MEQ/L (8-16); BLOOD UREA NITROGEN 17 MG/DL (7-18); CALCIUM LEVEL 8.8 MG/DL (8.8-10.2); CARBON DIOXIDE LEVEL 29 MEQ/L (21-32); CHLORIDE LEVEL 107 MEQ/L (98-107); CREATININE FOR GFR 0.95 MG/DL (0.55-1.30); GLOMERULAR FILTRATION RATE > 60.0 (>39); GLUCOSE, FASTING 125 MG/DL (70-100); POTASSIUM SERUM 5.1 MEQ/L (3.5-5.1); SODIUM LEVEL 140 MEQ/L (136-145)
[2018-01-19] MEDS: SERTRALINE 100 MG TAB PO (16:16)
[2018-01-19] MEDS: traZODone 100 MG TAB PO (20:26)
[2018-01-20] MEDS: ceFAZolin SOD 1 GM in D5W MINI-BAG PLUS 50 ML IV (01:29)
[2018-01-20] MEDS: LR 1,000 ML IV (02:23)
[2018-01-20] MEDS: LEVOTHYROXINE 50MCG TABLET (0.05MG) PO (06:14)
[2018-01-20] MEDS ORDERED: ONDANSETRON 4 MG TAB (S0181) PO (06:15)
[2018-01-20 06:42] LABS: HEMATOCRIT 36.8 % (36.0-47.0); MEAN CORPUSCULAR HEMOGLOBIN 32.3 pg (27.0-33.0); MEAN CORPUSCULAR HGB CONC 32.3 g/dl (32.0-36.5); PLATELET COUNT, AUTOMATED 215 10^3/uL (150-450); RED BLOOD COUNT 3.68 10^6/uL (4.00-5.40); RED CELL DISTRIBUTION WIDTH 12.1 % (11.5-14.5)
[2018-01-20 07:04] LABS: HEMOGLOBIN 11.9 g/dl (12.0-15.5)
[2018-01-20] MEDS: MIRALAX *UNIT DOSE* 17GM PACKET PO (09:55)
[2018-01-20] MEDS: MOM 30ML SUSPENSION UDC PO (09:55)
[2018-01-20] MEDS: SENOKOT S TAB PO ×2 (09:56→21:16)
[2018-01-20] MEDS: SERTRALINE 100 MG TAB PO (09:56)
[2018-01-20] MEDS: ATORVASTATIN 20 MG TAB PO (09:56)
[2018-01-20] MEDS: PERCOCET 5MG/325MG TAB PO ×3 (11:42→21:17)
[2018-01-20] MEDS: RIVAROXABAN 10 MG TAB (XARELTO) PO (17:09)
[2018-01-20] MEDS: traZODone 100 MG TAB PO (21:16)
[2018-01-21] MEDS: PERCOCET 5MG/325MG TAB PO ×3 (02:27→14:38)
[2018-01-21] MEDS: LEVOTHYROXINE 50MCG TABLET (0.05MG) PO (05:29)
[2018-01-21 06:37] LABS: HEMATOCRIT 36.1 % (36.0-47.0); HEMOGLOBIN 11.7 g/dl (12.0-15.5); MEAN CORPUSCULAR HEMOGLOBIN 32.2 pg (27.0-33.0); MEAN CORPUSCULAR HGB CONC 32.4 g/dl (32.0-36.5); MEAN CORPUSCULAR VOLUME 99.4 fl (80.0-96.0); PLATELET COUNT, AUTOMATED 202 10^3/uL (150-450); RED BLOOD COUNT 3.63 10^6/uL (4.00-5.40); WHITE BLOOD COUNT 10.9 10^3/uL (4.0-10.0)
[2018-01-21] MEDS: MOM 30ML SUSPENSION UDC PO (08:33)
[2018-01-21] MEDS: MIRALAX *UNIT DOSE* 17GM PACKET PO (08:33)
[2018-01-21] MEDS: SENOKOT S TAB PO (08:33)
[2018-01-21] MEDS: ATORVASTATIN 20 MG TAB PO (08:33)
[2018-01-21] MEDS: SERTRALINE 100 MG TAB PO (08:34)
[2018-01-21] MEDS: CALCIUM CARBONATE 500 MG CHEW U/D PO (14:36)
== END 2018-01-21 15:30 | disposition home or self-care (01) | DRG 470 ==
LOC: M OR 06:43 → M MS5PR 13:10
PROC: 0SRC0J9 Replacement of Right Knee Joint with Synthetic Substitute, Cemented, Open Approach (ICD-10-PCS; principal; 2018-01-19 09:30)
DX: M17.11 Unilateral primary osteoarthritis, right knee (principal); Z68.41 Body mass index [BMI] 40.0-44.9, adult; E66.01 Morbid (severe) obesity due to excess calories; Z79.899 Other long term (current) drug therapy; Z88.2 Allergy status to sulfonamides; Z88.8 Allergy status to other drugs, medicaments and biological substances; E03.9 Hypothyroidism, unspecified; E78.5 Hyperlipidemia, unspecified; K21.9 Gastro-esophageal reflux disease without esophagitis; M81.0 Age-related osteoporosis without current pathological fracture; K57.30 Diverticulosis of large intestine without perforation or abscess without bleeding; Z87.891 Personal history of nicotine dependence; F32.9 Major depressive disorder, single episode, unspecified

== ENCOUNTER 2018-01-23 14:03 | Emergency (ER) | payer MEDICARE ==
[~2018-01-23] VITALS: Ht 162.6 cm; Wt 113.6 kg
[~2018-01-23 14:03] MED LIST changes: +ALPR0.5T3; -BUPIVACAINE/DEXTROSE 0.75% 2 ML AMP As Ordered; +CELE1CAP4 PO; +CYCL5TAB PO; +DOXY100C37 PO; +IBUP-1022 PO; +KEFL500C17 PO; +LEVO25TA5 PO; -LIDOCAINE 2% INJ 100 MG/5 ML SDV (FOR ANES.) As Ordered; +LIPI20TA PO; +LIPI80TA PO; -MIDAZOLAM INJ 2 MG/2 ML VIAL (J2250) As Ordered; -ONDANSETRON 4MG/2ML VIAL (J2405) As Ordered; +PERC5TAB12 PO; -PROPOFOL 500 MG/50 ML VIAL As Ordered; +ROBA500T PO; +SERT50TA PO; +TRAZ-163 PO; +XARE10TA PO; -dexameTHASONE 4 MG/ML 1ML VIAL (J1100) As Ordered; -fentaNYL 100 MCG/2 ML INJECTION (J3010) As Ordered
[2018-01-23 14:44] LABS: BASO % 0.3 % (0.0-1.0); EOS % 0.3 % (0.0-3.0); HEMATOCRIT 33.4 % (36.0-47.0); LYMPH # 2.4 10^3/uL (1.5-4.5); LYMPH % 22.9 % (24.0-44.0); MEAN CORPUSCULAR HEMOGLOBIN 32.4 pg (27.0-33.0); MEAN CORPUSCULAR HGB CONC 32.9 g/dl (32.0-36.5); MEAN CORPUSCULAR VOLUME 98.5 fl (80.0-96.0); MONO # 0.8 10^3/uL (0.0-0.8); MONO % 7.6 % (0.0-5.0); NEUTROPHILS # 7.2 10^3/uL (1.8-7.7); NEUTROPHILS % 68.4 % (36.0-66.0); PLATELET COUNT, AUTOMATED 248 10^3/uL (150-450); RED BLOOD COUNT 3.39 10^6/uL (4.00-5.40); WHITE BLOOD COUNT 10.6 10^3/uL (4.0-10.0)
[2018-01-23] MEDS ORDERED: PERCOCET 5MG/325MG TAB PO ONE (15:15)
--- NOTE | 2018-01-23 16:29 | REP ---
Clinical: Status post left knee replacement with pain and swelling . Technique: Morrison scale and color Doppler evaluation using linear high frequency transducer. Findings: Ultrasound examination of the left lower extremity deep venous structures from the common femoral vein to the popliteal vein demonstrates normal compressibility flow and wave patterns in response to respiration and augmentation. There is no evidence for deep venous thrombosis. Impression: No evidence for deep venous thrombosis. Electronically Signed by Sukhdeep Simon MD 01/23/2018 04:21 P
[2018-01-23] MEDS ORDERED: cefTRIAXone SOD 1 GM VIAL (J0696) IM ONE (16:45)
[2018-01-23] MEDS ORDERED: cefTRIAXone SOD 1 GM in D5W MINI-BAG PLUS 50 ML IV ONE (17:00)
[2018-01-23 17:33] VITALS: BP 127/63
== END 2018-01-23 18:00 | disposition home or self-care (01) ==
LOC: M ED 14:03
DX: T81.89XA Other complications of procedures, not elsewhere classified, initial encounter (principal); M79.604 Pain in right leg; R60.0 Localized edema; Z96.651 Presence of right artificial knee joint; I10 Essential (primary) hypertension; E78.5 Hyperlipidemia, unspecified
CPT/HCPCS: 85025; 86140; 93971; 96365; 96372; 99283; J0696

== ENCOUNTER → 2018-09-12 | Outpatient (CLI) | payer MEDICARE ==
[~2018-09-12] MED LIST changes: +SERT-141 PO; -SERT50TA PO
--- NOTE | 2018-09-12 11:39 | REPMRS ---
Patient History The patient states she had a clinical breast exam in 08/2018. Patient is postmenopausal. No known family history of cancer. No Hormone Replacement Therapy 3D TOMOSYNTHESIS WAS PERFORMED. [facility] Digital Woman Screen Mammo: September 12, 2018 - Exam #: [id number] Bilateral CC and MLO view(s) were taken. Technologist: Lexii Soto, Technologist Prior study comparison: April 28, 2017, digital woman screen mammo performed at [facility]. June 04, 2016, right breast digital mammo diagnostic unilateral, performed at [facility]. FINDINGS: The breast tissue is heterogeneously dense. This may lower the sensitivity of mammography. There has been no change in the appearance of the mammogram from the prior studies. There is a moderate amount of residual fibroglandular tissue which is fairly symmetric. There is no interval development of dominant mass, areas of architectural distortion, or clustered microcalcification typical of malignancy. Assessment: BI-RADS/ACR category 1 mammogram. Negative Mammogram. Recommendation Routine screening mammogram in 1 year (for women over age 40). This mammogram was interpreted with the aid of an FDA-approved computer-aided dectection system. Electronically Signed By: Daniel Morrison MD 09/12/18 [id number]
== END ==
LOC: M WHC 10:12
PROVIDERS: ATTEND Nurse Practitioner Women's Health
DX: Z12.31 Encounter for screening mammogram for malignant neoplasm of breast (principal); Z78.0 Asymptomatic menopausal state
CPT/HCPCS: 77063; 77067; G0463

== ENCOUNTER → 2018-11-10 | Outpatient (REF) | payer MEDICARE ==
[~2018-11-10] MED LIST changes: +ATOR80TA59; +IBUP80TA; +LEVO50TA5; -TRAZ-163 PO; +TRAZ-257 PO
== END ==
LOC: M SFHCPLAZ 13:55
DX: E03.9 Hypothyroidism, unspecified (principal); E78.5 Hyperlipidemia, unspecified; E66.9 Obesity, unspecified; Z53.8 Procedure and treatment not carried out for other reasons

== ENCOUNTER → 2018-11-12 | Outpatient (CLI) | payer MEDICARE ==
[~2018-11-12] MED LIST changes: -ATOR80TA59; -IBUP80TA; -LEVO50TA5; +TRAZ-163 PO; -TRAZ-257 PO
[2018-11-12 13:20] LABS: HEMOGLOBIN A1c 5.8 %
[2018-11-12 13:35] LABS: CHOLESTEROL RISK RATIO 4.509 (<5); THYROID STIMULATING HORMONE 2.22 uIU/ML (0.358-3.740)
== END ==
LOC: M WUC 08:02
PROVIDERS: ATTEND Internal Medicine
DX: E78.5 Hyperlipidemia, unspecified (principal); E03.9 Hypothyroidism, unspecified; E66.9 Obesity, unspecified

== ENCOUNTER → 2018-12-27 | Outpatient (CLI) | payer MEDICARE, MEDICAID | LOC: M WUC 10:08 | PROVIDERS: ATTEND Internal Medicine | DX: Z11.59 Encounter for screening for other viral diseases (principal) ==

== ENCOUNTER 2019-01-10 09:32 | Emergency (ER) | payer MEDICARE, MEDICAID ==
[~2019-01-10] VITALS: Ht 162.6 cm; Wt 110.6 kg
[2019-01-10] MEDS ORDERED: LEVO50TA5 (09:42)
[2019-01-10] MEDS ORDERED: ATOR80TA59 (09:42)
[2019-01-10] MEDS ORDERED: IBUP80TA (09:42)
[2019-01-10 10:19] LABS: BASO % 0.5 % (0.0-1.0); EOS % 0.5 % (0.0-3.0); HEMATOCRIT 43.6 % (36.0-47.0); HEMOGLOBIN 14.3 g/dl (12.0-15.5); LYMPH # 1.5 10^3/uL (1.5-5.0); LYMPH % 22.9 % (24.0-44.0); MEAN CORPUSCULAR HEMOGLOBIN 31.9 pg (27.0-33.0); MEAN CORPUSCULAR HGB CONC 32.8 g/dl (32.0-36.5); MEAN CORPUSCULAR VOLUME 97.3 fl (80.0-96.0); MONO # 0.4 10^3/uL (0.0-0.8); MONO % 6.6 % (0.0-5.0); NEUTROPHILS # 4.4 10^3/uL (1.5-8.5); NEUTROPHILS % 69.2 % (36.0-66.0); PLATELET COUNT, AUTOMATED 234 10^3/uL (150-450); RED BLOOD COUNT 4.48 10^6/uL (4.00-5.40); WHITE BLOOD COUNT 6.3 10^3/uL (4.0-10.0)
--- NOTE | 2019-01-10 10:37 | REP ---
CT brain: 01/10/2019. Indication: Headache. Comparison: 03/14/2010. Technique: Unenhanced axial CT images of the brain were obtained from skull base to vertex. Findings: There is no acute intracranial hemorrhage, acute cortical infarction, mass effect, hydrocephalus or significant fluid within the visualized paranasal sinuses/mastoid air cells. Occipital venous lakes versus arachnoid granulations are stable. Impression: No acute intracranial process. Electronically Signed by Missael Prieto DO 01/10/2019 10:29 A
[2019-01-10 10:50] LABS: ERYTHROCYTE SEDIMENTATION RATE 16 mm/hr (0-30)
[2019-01-10 10:56] LABS: BLOOD UREA NITROGEN 19 MG/DL (7-18); C REACTIVE PROTEIN QUANTITATIV < 0.30 MG/DL (0.00-0.30); CALCIUM LEVEL 9.1 MG/DL (8.8-10.2); CARBON DIOXIDE LEVEL 28 MEQ/L (21-32); CHLORIDE LEVEL 107 MEQ/L (98-107); CREATININE FOR GFR 1.11 MG/DL (0.55-1.30); GLOMERULAR FILTRATION RATE 51.6 (>39); GLUCOSE, FASTING 98 MG/DL (70-100); POTASSIUM SERUM 4.7 MEQ/L (3.5-5.1); SODIUM LEVEL 141 MEQ/L (136-145)
[2019-01-10 11:08] VITALS: BP 126/65
== END 2019-01-10 11:26 | disposition home or self-care (01) ==
LOC: M ED 09:32
DX: R51 Headache (principal); E03.9 Hypothyroidism, unspecified; F41.9 Anxiety disorder, unspecified; Z79.899 Other long term (current) drug therapy; Z88.2 Allergy status to sulfonamides; Z88.8 Allergy status to other drugs, medicaments and biological substances

== ENCOUNTER 2019-08-13 17:20 | Emergency (ER) | payer MEDICARE ==
[~2019-08-13] VITALS: Ht 162.6 cm; Wt 117.2 kg
[~2019-08-13 17:20] MED LIST changes: +ATOR80TA59; +IBUP80TA; +LEVO50TA5; -TRAZ-163 PO; +TRAZ-257 PO
[2019-08-13] MEDS ORDERED: OMEP-218 (17:28)
[2019-08-13 17:54] LABS: MEAN CORPUSCULAR HEMOGLOBIN 31.3 pg (27.0-33.0); MEAN CORPUSCULAR HGB CONC 31.7 g/dl (32.0-36.5); MEAN CORPUSCULAR VOLUME 98.6 fl (80.0-96.0); PLATELET COUNT, AUTOMATED 229 10^3/uL (150-450); RED BLOOD COUNT 4.16 10^6/uL (4.00-5.40); WHITE BLOOD COUNT 7.2 10^3/uL (4.0-10.0)
[2019-08-13 18:28] LABS: ALBUMIN 3.9 GM/DL (3.2-5.2); ALT/SGPT 18 U/L (12-78); BILIRUBIN,DIRECT < 0.1 MG/DL (0.0-0.2); BILIRUBIN,TOTAL 0.3 MG/DL (0.2-1.0); BLOOD UREA NITROGEN 20 MG/DL (7-18); CALCIUM LEVEL 8.8 MG/DL (8.8-10.2); CARBON DIOXIDE LEVEL 29 MEQ/L (21-32); CHLORIDE LEVEL 106 MEQ/L (98-107); CK-MB VALUE MASS 1.6 NG/ML (<3.6); CPK CREATINE PHOSPHOKINASE 189 U/L (26-192); CREATININE FOR GFR 1.01 MG/DL (0.55-1.30); GLOMERULAR FILTRATION RATE 57.4 (>39); GLUCOSE, FASTING 90 MG/DL (70-100); MB/CK RELATIVE INDEX 0.85 (< OR =4); NT-PRO BNP 171 PG/ML (<125); POTASSIUM SERUM 4.6 MEQ/L (3.5-5.1); SODIUM LEVEL 141 MEQ/L (136-145); TOTAL PROTEIN 7.3 GM/DL (6.4-8.2); TROPONIN I < 0.02 NG/ML (< 0.10)
--- NOTE | 2019-08-13 20:17 | REPVR ---
PROCEDURE INFORMATION: Exam: US Duplex Lower Extremity Veins, Bilateral Exam date and time: 08/13/2019 8:11 PM Age: 74 years old Clinical indication: Edema, localized; Lower extremity, bilateral; Additional info: Bilateral lower leg swelling TECHNIQUE: Imaging protocol: Real-time duplex ultrasound of the extremities with 2-D alfonso scale, color Doppler flow and spectral waveform analysis with image documentation. Complete exam focused on the bilateral lower extremity veins. COMPARISON: US Duplex, Ext,LOWER veins,unilat 01/23/2018 3:49 PM FINDINGS: Right deep veins: Unremarkable. The common femoral, femoral, proximal profunda femoral and popliteal veins are patent without thrombus. Normal Doppler waveforms. Normal compressibility and/or augmentation response. Right superficial veins: Saphenofemoral junction is patent without thrombus. Left deep veins: Unremarkable. The common femoral, femoral, proximal profunda femoral and popliteal veins are patent without thrombus. Normal Doppler waveforms. Normal compressibility and/or augmentation response. Left superficial veins: Saphenofemoral junction is patent without thrombus. Soft tissues: Lower leg edema. IMPRESSION: No evidence of deep vein thrombosis. Electronically signed by: Nils Baptiste On 08/13/2019 20:17:07 PM
[2019-08-13] MEDS ORDERED: LASI20TA3 PO (20:45)
[2019-08-13] MEDS ORDERED: FUROSEMIDE 20 MG TAB PO ONE (20:45)
[2019-08-13 21:05] VITALS: BP 169/77
--- NOTE | 2019-08-14 08:26 | REP ---
Portable chest x-ray: Single view. History: Leg swelling. Comparison chest x-ray: December 30, 2017. Findings: Monitoring electrodes overlie the chest. Lungs are well inflated and clear. Pleural angles are sharp. Heart is not enlarged. The aorta is tortuous. Pulmonary vasculature is not increased. Impression: No acute disease. Electronically Signed by John Weeks MD 08/14/2019 08:18 A
--- NOTE | 2019-08-14 21:23 | ECGEPIP ---
[facility] - ED Test Date: 2019-08-13 Pat Name: KEN STUBBS Department: Room: - Gender: Female Occ Therapy Asst: JJackson : 1945 Requested By: VAMSI JOHNSON Order Number: [id number] Reading MD: Randy Paredes Measurements Intervals [place] Rate: 74 P: 56 IN: 155 QRS: 2 QRSD: 82 T: 10 QT: 377 QTc: 420 Interpretive Statements SINUS RHYTHM SIMILAR TO 12/30/17 Electronically Signed on 08-14-2019 21:23:24 EDT by Randy Paredes
== END 2019-08-13 21:06 | disposition home or self-care (01) ==
LOC: M ED 17:20
DX: R60.0 Localized edema (principal); E78.5 Hyperlipidemia, unspecified; E03.9 Hypothyroidism, unspecified; Z87.891 Personal history of nicotine dependence; Z79.899 Other long term (current) drug therapy; Z88.2 Allergy status to sulfonamides; Z88.8 Allergy status to other drugs, medicaments and biological substances

== ENCOUNTER → 2019-10-06 | Outpatient (CLI) | payer MEDICARE ==
[~2019-10-06] MED LIST changes: +LASI20TA3 PO; +OMEP-218
--- NOTE | 2019-10-25 11:39 | REPMRS ---
Patient History The patient states she had a clinical breast exam in 09/2019. Patient is postmenopausal. No known family history of cancer. No Hormone Replacement Therapy Digital Woman Screen Mammo: October 06, 2019 - Exam #: [id number] Bilateral CC and MLO view(s) were taken. Technologist: Lizbeth Liz, Technologist Prior study comparison: September 12, 2018, bilateral digital woman screen mammo performed at [facility]. April 28, 2017, digital woman screen mammo performed at [facility]. FINDINGS: There are scattered fibroglandular densities. The Volpara volumetric breast density category is:B. There has been no change in the appearance of the mammogram from the prior studies. There is a mild amount of scattered fibroglandular density which is fairly symmetric. There is no interval development of dominant mass, architectural distortion, or grouped microcalcification suggestive of malignancy. 3-D tomosynthesis shows no additional findings. Assessment: BI-RADS/ACR category 1 mammogram. Negative Mammogram. Recommendation Routine screening mammogram of both breasts in 1 year (for women over age 40). This patient's Lifetime Breast Cancer Risk is estimated at 3.1 %. This mammogram was interpreted with the aid of an FDA-approved computer-aided dectection system. Electronically Signed By: Damion Weeks MD 10/25/19 [id number]
== END ==
LOC: M WHC 16:07
PROVIDERS: ATTEND Nurse Practitioner Women's Health
DX: Z12.31 Encounter for screening mammogram for malignant neoplasm of breast (principal); Z78.0 Asymptomatic menopausal state

== ENCOUNTER → 2020-02-05 | Outpatient (CLI) | payer SELFPAY | LOC: M LABSMTC 15:55 | PROVIDERS: ATTEND Pediatrics | DX: Z20.828 Contact with and (suspected) exposure to other viral communicable diseases (principal) ==

== ENCOUNTER → 2020-02-29 | Outpatient (CLI) | payer SELFPAY | LOC: M LABSMTC 10:23 | PROVIDERS: ATTEND Pediatrics | DX: Z20.828 Contact with and (suspected) exposure to other viral communicable diseases (principal) ==

== ENCOUNTER → 2020-10-14 | Outpatient (CLI) | payer MEDICARE ==
[~2020-10-14] MED LIST changes: -DOXY100C37 PO; +DOXY1CAP62 PO
--- NOTE | 2020-10-14 11:45 | REPMRS ---
Patient History The patient states she had a clinical breast exam in 08/2020. No known family history of cancer. No Hormone Replacement Therapy Patient states no breast complaints today. Patient has signed MRS History Sheet. Digital Woman Screen Mammo: October 14, 2020 - Exam #: [id number] Bilateral CC and MLO view(s) were taken. Technologist: Radha Son, Scientist Propagator Prior study comparison: October 06, 2019, bilateral digital woman screen mammo performed at [facility]. September 12, 2018, bilateral digital woman screen mammo performed at [facility]. FINDINGS: There are scattered fibroglandular densities. Screening. Digital screening (2D) mammography was performed bilaterally in the CC and MLO projections. Additionally, breast tomosynthesis (3D mammography) was performed bilaterally in the CC and MLO projections. Todays exam was compared to the prior exam/exams. By history, the patient has no complaints of a palpable breast abnormality or other significant breast complaints. The breasts are unchanged in size and shapeOnce again, stable benign appearing calcifications are seen.. There are no oliva-soft tissue densities or spiculated masses. There is no internal architectural distortion. There are no suspicious oliva-calcific clusters. Skin thickening or nipple retraction is not present. IMPRESSION: BI-RADS Category 2- Benign Findings. There is no evidence of malignant alteration of the breasts. Followup examination recommended in one year. The Volpara volumetric breast density category is B, there are scattered areas of fibroglandular densities. This mammogram was read with the assistance of [facility] [employer],an FDA approved computer aided detection system for mammography. The lifetime Tyrer-Cuzick score is 2.9 % Negative x-ray reports should not delay surgical consultation if a dominant or clinically suspicious mass is present. Not all breast cancers can be identified by mammography. Therefore, we recommend that you continue to perform regular breast self-examination and physical examination and then promptly contact your physician of any concerns or changes. Adenosis and dense breasts may obscure an underlying neoplasm. Assessment: BI-RADS/ACR category 2 mammogram. Benign Findings. Recommendation Routine screening mammogram of both breasts in 1 year. Electronically Signed By: Abraham Bailey DO 10/14/20 [id number]
== END ==
LOC: M WHC 10:49
PROVIDERS: ATTEND Nurse Practitioner Women's Health
DX: Z12.31 Encounter for screening mammogram for malignant neoplasm of breast (principal)

== ENCOUNTER 2020-12-04 18:26 | Emergency (ER) | payer MEDICARE ==
[~2020-12-04] VITALS: Ht 162.6 cm; Wt 113.0 kg
[2020-12-04 18:26] VITALS: BP 119/72
[2020-12-04] MEDS ORDERED: FURO20TA2 (18:36)
[2020-12-04] MEDS ORDERED: CELE1CAP9 (18:36)
[2020-12-04] MEDS ORDERED: CETI-24 (18:36)
[2020-12-04] MEDS ORDERED: PARO20TA3 (18:36)
[2020-12-04] MEDS ORDERED: VENL37.598 (18:36)
[2020-12-04] MEDS ORDERED: LEVO75TA4 (18:36)
== END 2020-12-04 20:22 | disposition left against medical advice (07) ==
LOC: M ED 18:26
DX: Z53.21 Procedure and treatment not carried out due to patient leaving prior to being seen by health care provider (principal)

== ENCOUNTER → 2021-01-08 | Outpatient (CLI) | payer MEDICARE ==
[~2021-01-08] MED LIST changes: +CELE1CAP9; +CETI-24; +DOXY-443 PO; -DOXY1CAP62 PO; +FURO20TA2; +LEVO75TA4; +PARO20TA3; +VENL37.598
--- NOTE | 2021-01-08 11:34 | REP ---
INDICATION: HYPERTENSION, BENIGN NEOPLASM OF LUNG. COMPARISON: 08/13/2019 TECHNIQUE: PA and lateral FINDINGS: The superior mediastinal structures are midline. The cardiac silhouette is unremarkable in size, shape, and position. The diaphragmatic surfaces of the lungs are regular, and the costophrenic angles are clear. The pulmonary martinez are clear. The imaged osseous structures are intact. IMPRESSION: There is no acute cardiopulmonary disease. <Electronically signed by Abraham Bailey > 01/08/21 [id number]
== END ==
LOC: M WUC 10:07
DX: I10 Essential (primary) hypertension (principal); D14.30 Benign neoplasm of unspecified bronchus and lung

== ENCOUNTER → 2022-01-26 | Outpatient (CLI) | payer MEDICARE ==
[~2022-01-26] MED LIST changes: +CALC500T52 PO; -CELE1CAP9; +CELE1CAP9 PO; -CETI-24; +CETI-24 PO; +CO Q10CA PO; -FURO20TA2; +FURO20TA2 PO; -LEVO75TA4; +LEVO75TA4 PO; +OMEP-173; -OMEP-218; +OMEP40CA5 PO; +POTA540T PO; +PRES1CHW PO; +ROSU40TA4 PO; +TUMERIC PO; -VENL37.598; +VENL37.598 PO; +VITA500075 PO
[2022-01-26 10:51] LABS: BASO % 0.3 % (0.0-1.0); EOS % 0.4 % (0.0-3.0); HEMATOCRIT 42.7 % (36.0-47.0); HEMOGLOBIN 13.4 g/dl (12.0-15.5); LYMPH # 1.3 10^3/uL (1.5-5.0); LYMPH % 18.1 % (24.0-44.0); MEAN CORPUSCULAR HEMOGLOBIN 31.1 pg (27.0-33.0); MEAN CORPUSCULAR HGB CONC 31.4 g/dl (32.0-36.5); MEAN CORPUSCULAR VOLUME 99.1 fl (80.0-96.0); MONO # 0.4 10^3/uL (0.0-0.8); NEUTROPHILS # 5.2 10^3/uL (1.5-8.5); NEUTROPHILS % 74.9 % (36.0-66.0); PLATELET COUNT, AUTOMATED 203 10^3/uL (150-450); RED BLOOD COUNT 4.31 10^6/uL (4.00-5.40); WHITE BLOOD COUNT 6.9 10^3/uL (4.0-10.0)
[2022-01-26 11:04] LABS: INR 0.93; PROTHROMBIN TIME 12.6 SECONDS (12.5-14.5)
[2022-01-26 11:40] LABS: CARBON DIOXIDE LEVEL 29 MMOL/L (20-31); CHLORIDE LEVEL 104 MMOL/L (98-107); POTASSIUM SERUM 4.1 MMOL/L (3.5-5.1); SODIUM LEVEL 142 MMOL/L (136-145)
[2022-01-26 11:41] LABS: ALBUMIN 3.7 G/DL (3.2-5.2)
[2022-01-26 11:45] LABS: BLOOD UREA NITROGEN 25 MG/DL (9-23); TRIGLYCERIDES LEVEL 90 MG/DL (<150)
[2022-01-26 11:46] LABS: CALCIUM LEVEL 8.9 MG/DL (8.3-10.6); GLUCOSE, FASTING 108 MG/DL (74-106)
[2022-01-26 11:48] LABS: CHOLESTEROL LEVEL 203 MG/DL (<200); CREATININE FOR GFR 0.82 MG/DL (0.55-1.30); GLOMERULAR FILTRATION RATE > 60.0 (>39); HDL CHOLESTEROL 57.9 MG/DL (>40); LDL CHOLESTEROL 127.1 MG/DL (<100); NON-HDL-C 145 MG/DL; PHOSPHORUS LEVEL 2.2 MG/DL (2.4-5.1)
[2022-01-26 11:49] LABS: FREE T4 1.07 NG/DL (0.89-1.76)
== END ==
LOC: M RAD 08:55
PROVIDERS: ATTEND Physician Assistant
DX: Z01.818 Encounter for other preprocedural examination (principal); E78.5 Hyperlipidemia, unspecified; I10 Essential (primary) hypertension; E03.9 Hypothyroidism, unspecified

== ENCOUNTER → 2022-01-29 | Outpatient (CLI) | payer MEDICARE | LOC: M LABSMTC 10:00 | PROVIDERS: ATTEND Anesthesiology | DX: Z01.812 Encounter for preprocedural laboratory examination (principal); Z20.822 Contact with and (suspected) exposure to COVID-19 ==

== ENCOUNTER 2022-02-02 07:46 | Day surgery (SDC) | payer MEDICARE ==
[~2022-02-02] VITALS: Ht 162.6 cm; Wt 111.1 kg
[~2022-02-02 07:46] MED LIST changes: +BSS IRRIG/VANCO(10MG)/TOBRA(5MG)/EPINEPH(1:1000-0.5CC)500ML BAG-ORONLY IR ONE; +CEFUROXIME 1MG/0.1ML INTRACAMERAL INJ As Ordered ONE; +CYCLOPENTOLATE 1% OPHTH SOLN 2 ML BTL OD SCH; +LIDOCAINE 1% 1ML PF SYRINGE (OR EYE CASES) As Ordered ONE; +LIDOCAINE 3.5 % 1ML OPHTH TOPICAL GEL OU ONE; +MIDAZOLAM INJ 2MG/2ML VIAL (J2250 PER 1MG) As Ordered ONE; +OFLOXACIN 0.3 % (OCUFLOX) OPTH SOL 5ML OD ONE; +PHENYLEPHRINE 10% OPHTH SOL 5ML OD PRN; +PHENYLEPHRINE 2.5% OPHTH SOL 2ML OD SCH; +TROPICAMIDE 1% OPHTH SOLN 15ML OD SCH
[2022-02-02 09:41] VITALS: BP 134/69
== END 2022-02-02 10:01 | disposition home or self-care (01) ==
LOC: M SDC 07:46
PROVIDERS: ATTEND Ophthalmology
DX: H25.11 Age-related nuclear cataract, right eye (principal); H57.03 Miosis; E03.9 Hypothyroidism, unspecified; E78.5 Hyperlipidemia, unspecified; F41.9 Anxiety disorder, unspecified; F32.A Depression, unspecified; G47.30 Sleep apnea, unspecified; Z79.899 Other long term (current) drug therapy; Z88.2 Allergy status to sulfonamides; Z88.8 Allergy status to other drugs, medicaments and biological substances
CPT/HCPCS: 66982; J0697; J2250; V2632

== ENCOUNTER → 2022-02-08 | Outpatient (CLI) | payer MEDICARE ==
[~2022-02-08] MED LIST changes: -BSS IRRIG/VANCO(10MG)/TOBRA(5MG)/EPINEPH(1:1000-0.5CC)500ML BAG-ORONLY IR ONE; -CEFUROXIME 1MG/0.1ML INTRACAMERAL INJ As Ordered ONE; +COQ-100C5 PO; -CYCLOPENTOLATE 1% OPHTH SOLN 2 ML BTL OD SCH; -LIDOCAINE 1% 1ML PF SYRINGE (OR EYE CASES) As Ordered ONE; -LIDOCAINE 3.5 % 1ML OPHTH TOPICAL GEL OU ONE; -MIDAZOLAM INJ 2MG/2ML VIAL (J2250 PER 1MG) As Ordered ONE; -OFLOXACIN 0.3 % (OCUFLOX) OPTH SOL 5ML OD ONE; -PHENYLEPHRINE 10% OPHTH SOL 5ML OD PRN; -PHENYLEPHRINE 2.5% OPHTH SOL 2ML OD SCH; -TROPICAMIDE 1% OPHTH SOLN 15ML OD SCH
== END ==
LOC: M LABSMTC 10:32
PROVIDERS: ATTEND Anesthesiology
DX: Z01.812 Encounter for preprocedural laboratory examination (principal); Z20.822 Contact with and (suspected) exposure to COVID-19

== ENCOUNTER 2022-02-09 08:54 | Day surgery (SDC) | payer MEDICARE ==
[~2022-02-09] VITALS: Ht 162.6 cm; Wt 112.0 kg
[~2022-02-09 08:54] MED LIST changes: +BSS IRRIG/VANCO(10MG)/TOBRA(5MG)/EPINEPH(1:1000-0.5CC)500ML BAG-ORONLY IR ONE; +CEFUROXIME 1MG/0.1ML INTRACAMERAL INJ As Ordered ONE; +LIDOCAINE 1% 1ML PF SYRINGE (OR EYE CASES) As Ordered ONE; +LIDOCAINE 3.5 % 1ML OPHTH TOPICAL GEL OU ONE; +OFLOXACIN 0.3 % (OCUFLOX) OPTH SOL 5ML OS ONE; +PHENYLEPHRINE 10% OPHTH SOL 5ML OS PRN
[2022-02-09] MEDS: TROPICAMIDE 1% OPHTH SOLN 15ML OS SCH ×3 (09:48→10:12)
[2022-02-09] MEDS: PHENYLEPHRINE 2.5% OPHTH SOL 2ML OS SCH ×3 (09:48→10:12)
[2022-02-09] MEDS: CYCLOPENTOLATE 1% OPHTH SOLN 2ML BTL OS SCH ×3 (09:48→10:12)
[2022-02-09] MEDS ORDERED: MIDAZOLAM INJ 2MG/2ML VIAL (J2250 PER 1MG) As Ordered ONE (10:14)
[2022-02-09 10:35] VITALS: BP 93/65
== END 2022-02-09 10:52 | disposition home or self-care (01) ==
LOC: M SDC 08:54
PROVIDERS: ATTEND Ophthalmology
DX: H25.12 Age-related nuclear cataract, left eye (principal); H57.03 Miosis; E03.9 Hypothyroidism, unspecified; E78.5 Hyperlipidemia, unspecified; F41.9 Anxiety disorder, unspecified; F32.A Depression, unspecified; Z79.899 Other long term (current) drug therapy; Z88.2 Allergy status to sulfonamides; Z88.8 Allergy status to other drugs, medicaments and biological substances
CPT/HCPCS: 66982; J0697; J2250; V2632

== ENCOUNTER → 2022-02-19 | Outpatient (CLI) | payer MEDICARE ==
[~2022-02-19] MED LIST changes: -BSS IRRIG/VANCO(10MG)/TOBRA(5MG)/EPINEPH(1:1000-0.5CC)500ML BAG-ORONLY IR ONE; -CEFUROXIME 1MG/0.1ML INTRACAMERAL INJ As Ordered ONE; -LIDOCAINE 1% 1ML PF SYRINGE (OR EYE CASES) As Ordered ONE; -LIDOCAINE 3.5 % 1ML OPHTH TOPICAL GEL OU ONE; -OFLOXACIN 0.3 % (OCUFLOX) OPTH SOL 5ML OS ONE; -PHENYLEPHRINE 10% OPHTH SOL 5ML OS PRN
== END ==
LOC: M WHC 09:27
PROVIDERS: ATTEND Advanced Practice Midwife
DX: Z12.31 Encounter for screening mammogram for malignant neoplasm of breast (principal)

== ENCOUNTER → 2022-06-22 | Outpatient (CLI) | payer MEDICARE | LOC: M SOG 11:32 | PROVIDERS: ATTEND Orthopaedic Surgery | DX: M25.552 Pain in left hip (principal) ==

== ENCOUNTER → 2022-10-27 | Outpatient (CLI) | payer MEDICARE | LOC: M WUC 10:50 | PROVIDERS: ATTEND Nurse Practitioner Adult Health | DX: J42 Unspecified chronic bronchitis (principal); J30.9 Allergic rhinitis, unspecified; Z82.49 Family history of ischemic heart disease and other diseases of the circulatory system ==

== ENCOUNTER → 2023-01-06 | Outpatient (CLI) | payer MEDICARE ==
[~2023-01-06] MED LIST changes: +CELE0.09 PO; -CELE1CAP9 PO; +E-Z-GAS II EFFERVESCENT PACKET (SODIUM BICARB./CITRIC ACID/SIMETHICONE) As Ordered ONE; +E-Z-HD 98% w/w 340GM SUSP BTL As Ordered ONE; +E-Z-PAQUE 96% w/w SUSP 176GM BTL As Ordered ONE
== END ==
LOC: M RAD 08:47
PROVIDERS: ATTEND Nurse Practitioner Adult Health
DX: R10.11 Right upper quadrant pain (principal)

== ENCOUNTER → 2023-03-04 | Outpatient (CLI) | payer OTHER ==
[~2023-03-04] MED LIST changes: -E-Z-GAS II EFFERVESCENT PACKET (SODIUM BICARB./CITRIC ACID/SIMETHICONE) As Ordered ONE; -E-Z-HD 98% w/w 340GM SUSP BTL As Ordered ONE; -E-Z-PAQUE 96% w/w SUSP 176GM BTL As Ordered ONE
== END ==
LOC: M WHC 14:41
PROVIDERS: ATTEND Advanced Practice Midwife
DX: Z12.31 Encounter for screening mammogram for malignant neoplasm of breast (principal); Z53.9 Procedure and treatment not carried out, unspecified reason

== ENCOUNTER → 2023-09-07 | Outpatient (CLI) | payer OTHER ==
[~2023-09-07] MED LIST changes: +DOXY-323 PO; -DOXY-443 PO; -ROSU40TA4 PO; +ROSU40TA63 PO
[2023-09-07 17:33] LABS: BASO % 0.4 % (0.0-1.0); EOS % 0.4 % (0.0-3.0); HEMATOCRIT 43.5 % (36.0-47.0); HEMOGLOBIN 14.1 g/dl (12.0-15.5); LYMPH # 1.8 10^3/uL (1.5-5.0); MEAN CORPUSCULAR HEMOGLOBIN 31.1 pg (27.0-33.0); MEAN CORPUSCULAR HGB CONC 32.4 g/dl (32.0-36.5); MONO # 0.5 10^3/uL (0.0-0.8); MONO % 5.7 % (2.0-8.0); NEUTROPHILS # 6.1 10^3/uL (1.5-8.5); NEUTROPHILS % 72.3 % (36.0-66.0); PLATELET COUNT, AUTOMATED 232 10^3/uL (150-450); RED BLOOD COUNT 4.53 10^6/uL (4.00-5.40); WHITE BLOOD COUNT 8.4 10^3/uL (4.0-10.0)
[2023-09-07 17:54] LABS: INR 1.07; PROTHROMBIN TIME 13.6 SECONDS (12.5-14.5)
[2023-09-07 18:00] LABS: ALBUMIN 3.9 G/DL (3.2-5.2); ALKALINE PHOSPHATASE 125 U/L (46-116); ALT/SGPT < 9 U/L (7.0-40); AST/SGOT 14 U/L (<34); BILIRUBIN,TOTAL 0.5 MG/DL (0.3-1.2); BLOOD UREA NITROGEN 33 MG/DL (9-23); CALCIUM LEVEL 9.5 MG/DL (8.3-10.6); CARBON DIOXIDE LEVEL 30 MMOL/L (20-31); CHLORIDE LEVEL 104 MMOL/L (98-107); CREATININE FOR GFR 0.94 MG/DL (0.55-1.30); GLOMERULAR FILTRATION RATE > 60.0 (>39); GLUCOSE, FASTING 103 MG/DL (74-106); POTASSIUM SERUM 4.4 MMOL/L (3.5-5.1); SODIUM LEVEL 141 MMOL/L (136-145); TOTAL 25(OH) VITAMIN D 46.5 NG/ML (20.0-100.0); TOTAL PROTEIN 6.7 G/DL (5.7-8.2)
[2023-09-07 19:04] LABS: HEMOGLOBIN A1c 5.4 % (4.0-6.0)
== END ==
LOC: M PLALAB 15:22
PROVIDERS: ATTEND Orthopaedic Surgery
DX: M17.11 Unilateral primary osteoarthritis, right knee (principal); Z79.899 Other long term (current) drug therapy

== ENCOUNTER → 2023-09-15 | Outpatient (CLI) | payer OTHER | LOC: M SOG 07:58 | PROVIDERS: ATTEND Orthopaedic Surgery | DX: M25.561 Pain in right knee (principal); M17.11 Unilateral primary osteoarthritis, right knee ==

== ENCOUNTER → 2023-09-30 | Outpatient (CLI) | payer OTHER | LOC: M RAD 13:35 | PROVIDERS: ATTEND Orthopaedic Surgery | DX: M17.11 Unilateral primary osteoarthritis, right knee (principal) ==

== ENCOUNTER → 2023-10-07 | Outpatient (CLI) | payer OTHER ==
[~2023-10-07] MED LIST changes: +BUSP1TAB PO; +COQ150CH PO; +RA T500C2 PO; +VITA100093 PO
== END ==
LOC: M EKG 12:14
PROVIDERS: ATTEND Anesthesiology
DX: Z01.818 Encounter for other preprocedural examination (principal); E03.9 Hypothyroidism, unspecified

== ENCOUNTER 2023-10-12 06:05 | Observation (INO) | payer OTHER, MEDICAID ==
[~2023-10-12] VITALS: Ht 162.6 cm; Wt 105.3 kg
[~2023-10-12 06:05] MED LIST changes: -ROSU40TA63 PO; +ROSU40TA81 PO
[2023-10-12] MEDS ORDERED: LR 1,000 ML IV SCH (06:10)
[2023-10-12] MEDS ORDERED: propofoL 200 MG/20 ML VIAL As Ordered ONE (06:43)
[2023-10-12] MEDS ORDERED: fentaNYL 100 MCG/2 ML INJECTION As Ordered ONE (06:43)
[2023-10-12] MEDS ORDERED: LIDOCAINE 2% 100MG/5ML SDV (FOR ANES.) As Ordered ONE (06:44)
[2023-10-12] MEDS ORDERED: ROCURONIUM BROMIDE 50MG/5ML VIAL As Ordered ONE (06:44)
[2023-10-12] MEDS ORDERED: ACETAMINOPHEN 1000MG 100ML IV BAG As Ordered ONE (06:44)
[2023-10-12] MEDS: ceFAZolin 2 GM/D5W 50 ML IV BAG As Ordered ONE (07:53)
[2023-10-12] MEDS: TRANEXAMIC ACID 100 MG/ML 10ML VIAL As Ordered ONE (08:05)
[2023-10-12] MEDS: ceFAZolin SOD 2 GM in IV 1 EA IV ONE (08:27)
[2023-10-12] MEDS: TRANEXAMIC ACID INJection 1,000 MG in NS 100 ML IV ONE (08:28)
[2023-10-12] MEDS: REK 50ML SYRINGE IA ONE (09:55)
[2023-10-12] MEDS ORDERED: SUGAMMADEX SODIUM 500 MG/5 ML VIAL (BRIDION) As Ordered ONE (09:56)
[2023-10-12] MEDS ORDERED: ONDANSETRON 4MG 2ML VIAL As Ordered ONE (09:56)
[2023-10-12] MEDS ORDERED: ONDANSETRON 4MG 2ML VIAL IV PRN ×2 (10:20→10:55)
[2023-10-12] MEDS ORDERED: SENNA 8.6 MG TAB (SENOKOT) PO PRN (10:20)
[2023-10-12] MEDS ORDERED: fentaNYL 100 MCG/2 ML INJECTION IV PRN (10:55)
[2023-10-12] MEDS: HYDROMORPHONE HCL 0.5 MG/ 0.5 ML SYRINGE IV PRN (11:10)
[2023-10-12] MEDS: oxyCODONE 5MG TAB PO PRN ×2 (11:11→20:10)
[2023-10-12] MEDS: ACETAMINOPHEN TAB 650MG DOSE (2X325MG) PO SCH (12:34)
[2023-10-12 14:00] VITALS: BP 123/73; TEMP 97.3; O2SAT 94
[2023-10-12] MEDS: LR 1,000 ML IV SCH ×2 (14:12)
[2023-10-12] MEDS ORDERED: POTA-150 PO (14:45)
[2023-10-12] MEDS ORDERED: DOCU100C16 PO (14:45)
[2023-10-12] MEDS ORDERED: FURO40TA2 PO (14:45)
[2023-10-12] MEDS ORDERED: HOME MED LIST COMPLETE! XX SCH (14:45)
[2023-10-12] MEDS ORDERED: VITA200010 PO (14:45)
[2023-10-12] MEDS ORDERED: CO-E100C2 PO (14:45)
[2023-10-12] MEDS ORDERED: SENN-187 PO (14:45)
[2023-10-12 15:13] VITALS: BP 125/71; TEMP 98.6; O2SAT 94
[2023-10-12] MEDS: ceFAZolin SOD 2 GM in IV 1 EA IV SCH (15:46)
[2023-10-12 16:00] VITALS: BP 125/65; TEMP 98.6; O2SAT 85
[2023-10-12] MEDS: ASPIRIN 81MG ENTERIC TABLET PO SCH (20:02)
[2023-10-12] MEDS: DOCUSATE SODIUM 100MG CAPSULE PO SCH (20:02)
[2023-10-12] MEDS ORDERED: traZODone 100 MG TAB PO SCH (21:00)
[2023-10-12 21:21] VITALS: BP 112/66; TEMP 98.7; O2SAT 96
[2023-10-13] VITALS: BP 101/52; TEMP 97.9; O2SAT 94
[2023-10-13 04:07] VITALS: BP 120/60; TEMP 97.9; O2SAT 93
[2023-10-13 06:09] LABS: HEMATOCRIT 30.8 % (36.0-47.0); HEMOGLOBIN 9.9 g/dl (12.0-15.5); MEAN CORPUSCULAR HEMOGLOBIN 31.2 pg (27.0-33.0); MEAN CORPUSCULAR HGB CONC 32.1 g/dl (32.0-36.5); MEAN CORPUSCULAR VOLUME 97.2 fl (80.0-96.0); PLATELET COUNT, AUTOMATED 178 10^3/uL (150-450); RED BLOOD COUNT 3.17 10^6/uL (4.00-5.40); WHITE BLOOD COUNT 9.7 10^3/uL (4.0-10.0)
[2023-10-13 06:21] LABS: ALKALINE PHOSPHATASE 93 U/L (46-116); ALT/SGPT < 9 U/L (7.0-40); AST/SGOT 15 U/L (<34); BILIRUBIN,TOTAL 0.4 MG/DL (0.3-1.2); BLOOD UREA NITROGEN 19 MG/DL (9-23); CALCIUM LEVEL 8.6 MG/DL (8.3-10.6); CARBON DIOXIDE LEVEL 30 MMOL/L (20-31); CHLORIDE LEVEL 104 MMOL/L (98-107); CREATININE FOR GFR 0.93 MG/DL (0.55-1.30); GLOMERULAR FILTRATION RATE > 60.0 (>39); GLUCOSE, FASTING 117 MG/DL (74-106); POTASSIUM SERUM 4.3 MMOL/L (3.5-5.1); SODIUM LEVEL 138 MMOL/L (136-145); TOTAL PROTEIN 5.4 G/DL (5.7-8.2)
[2023-10-13] MEDS: ASCORBIC ACID 500 MG TAB PO SCH (07:37)
[2023-10-13] MEDS: FERROUS SULFATE 325MG TAB PO SCH (07:37)
[2023-10-13] MEDS: CETIRIZINE (ZyrTEC) 10 MG TAB PO SCH (07:37)
[2023-10-13] MEDS: ROSUVASTATIN 10 MG TAB (CRESTOR) PO SCH (07:38)
[2023-10-13 08:00] VITALS: BP 126/69; TEMP 98.2; O2SAT 94
[2023-10-13] MEDS ORDERED: OXYC1TAB23 PO (08:59)
[2023-10-13] MEDS ORDERED: ASPI81TAEC PO (08:59)
[2023-10-13] MEDS ORDERED: CEFA500C2 PO (08:59)
[2023-10-13 12:00] VITALS: BP 127/68; TEMP 97.9; O2SAT 95
[2023-10-13 16:00] VITALS: BP 124/67; TEMP 98.1; O2SAT 94
[2023-10-13 21:00] VITALS: BP 131/64; TEMP 98.4; O2SAT 95
[2023-10-13] MEDS: CEFDINIR 300 MG CAP (OMNICEF) PO ONE (21:33)
[2023-10-14] VITALS: BP 148/70; TEMP 97.7; O2SAT 97
[2023-10-14 03:30] VITALS: BP 144/56; TEMP 97.9; O2SAT 98
[2023-10-14 05:55] LABS: HEMATOCRIT 27.1 % (36.0-47.0); HEMOGLOBIN 8.8 g/dl (12.0-15.5); MEAN CORPUSCULAR HEMOGLOBIN 31.8 pg (27.0-33.0); MEAN CORPUSCULAR HGB CONC 32.5 g/dl (32.0-36.5); MEAN CORPUSCULAR VOLUME 97.8 fl (80.0-96.0); PLATELET COUNT, AUTOMATED 151 10^3/uL (150-450); RED BLOOD COUNT 2.77 10^6/uL (4.00-5.40); WHITE BLOOD COUNT 8.8 10^3/uL (4.0-10.0)
[2023-10-14 06:24] LABS: ALBUMIN 2.8 G/DL (3.2-5.2); ALKALINE PHOSPHATASE 85 U/L (46-116); ALT/SGPT < 9 U/L (7.0-40); AST/SGOT 16 U/L (<34); BILIRUBIN,TOTAL 0.5 MG/DL (0.3-1.2); BLOOD UREA NITROGEN 13 MG/DL (9-23); CALCIUM LEVEL 8.6 MG/DL (8.3-10.6); CARBON DIOXIDE LEVEL 28 MMOL/L (20-31); CHLORIDE LEVEL 107 MMOL/L (98-107); CREATININE FOR GFR 0.73 MG/DL (0.55-1.30); GLOMERULAR FILTRATION RATE > 60.0 (>39); GLUCOSE, FASTING 112 MG/DL (74-106); POTASSIUM SERUM 4.2 MMOL/L (3.5-5.1); SODIUM LEVEL 139 MMOL/L (136-145); TOTAL PROTEIN 5.3 G/DL (5.7-8.2)
[2023-10-14 08:00] VITALS: BP 131/57; TEMP 98.1; O2SAT 96
[2023-10-14] MEDS: LIDOCAINE 5% (LIDODERM) PATCH TD SCH (08:54)
[2023-10-14] MEDS: oxyCODONE 5MG TAB PO PRN (10:37)
[2023-10-14 12:00] VITALS: BP 147/79; TEMP 97.9; O2SAT 95
[2023-10-14 16:00] VITALS: BP 123/60; TEMP 98.6; O2SAT 94
[2023-10-14] MEDS: PREVNAR-20 VACCINE 0.5ML SYRINGE IM.IMMUN ONE (18:14)
[2023-10-14 20:00] VITALS: BP 127/60; TEMP 97.3; O2SAT 97
[2023-10-15 04:00] VITALS: BP 125/59; TEMP 98.2; O2SAT 97
[2023-10-15 05:58] LABS: HEMATOCRIT 28.7 % (36.0-47.0); HEMOGLOBIN 9.2 g/dl (12.0-15.5); MEAN CORPUSCULAR HEMOGLOBIN 31.5 pg (27.0-33.0); MEAN CORPUSCULAR HGB CONC 32.1 g/dl (32.0-36.5); MEAN CORPUSCULAR VOLUME 98.3 fl (80.0-96.0); PLATELET COUNT, AUTOMATED 198 10^3/uL (150-450); RED BLOOD COUNT 2.92 10^6/uL (4.00-5.40); WHITE BLOOD COUNT 11.2 10^3/uL (4.0-10.0)
[2023-10-15 06:24] LABS: ALBUMIN 2.9 G/DL (3.2-5.2); ALKALINE PHOSPHATASE 90 U/L (46-116); ALT/SGPT < 9 U/L (7.0-40); AST/SGOT 17 U/L (<34); BILIRUBIN,TOTAL 0.4 MG/DL (0.3-1.2); BLOOD UREA NITROGEN 16 MG/DL (9-23); CALCIUM LEVEL 8.9 MG/DL (8.3-10.6); CARBON DIOXIDE LEVEL 27 MMOL/L (20-31); CHLORIDE LEVEL 105 MMOL/L (98-107); CREATININE FOR GFR 0.75 MG/DL (0.55-1.30); GLOMERULAR FILTRATION RATE > 60.0 (>39); GLUCOSE, FASTING 106 MG/DL (74-106); POTASSIUM SERUM 4.3 MMOL/L (3.5-5.1); SODIUM LEVEL 137 MMOL/L (136-145); TOTAL PROTEIN 5.8 G/DL (5.7-8.2)
[2023-10-15 12:30] VITALS: BP 130/63; TEMP 97.3; O2SAT 95
== END 2023-10-15 16:10 | disposition home or self-care (01) ==
LOC: M SDC 06:05 → M ED INP 06:06 → M MSPAV 13:57
PROVIDERS: ADMIT Orthopaedic Surgery; ATTEND Orthopaedic Surgery
DX: M17.11 Unilateral primary osteoarthritis, right knee (principal); G89.18 Other acute postprocedural pain; E66.01 Morbid (severe) obesity due to excess calories; Z68.41 Body mass index [BMI] 40.0-44.9, adult; R06.83 Snoring; E78.00 Pure hypercholesterolemia, unspecified; E03.9 Hypothyroidism, unspecified; K21.9 Gastro-esophageal reflux disease without esophagitis; R06.02 Shortness of breath; F41.9 Anxiety disorder, unspecified; F32.A Depression, unspecified; Z88.2 Allergy status to sulfonamides; Z88.8 Allergy status to other drugs, medicaments and biological substances; Z79.899 Other long term (current) drug therapy; Z79.890 Hormone replacement therapy; Z23 Encounter for immunization
CPT/HCPCS: 27447; 36415; 73560; 80053; 85027; 88300; 90677; 96361; 96365; 96376; 97116; 97161; 97165; 97530; 97535; C1776; G0009; G0378; J0131; J0171; J0690; J1100; J1170; J1885; J2405; J2795; J3010; S2900

== ENCOUNTER → 2023-10-25 | Outpatient (CLI) | payer OTHER, MEDICAID ==
[~2023-10-25] MED LIST changes: +ASPI81TAEC PO; +CEFA500C2 PO; +CO-E100C2 PO; +DOCU100C16 PO; +FURO40TA2 PO; +OXYC1TAB23 PO; +POTA-150 PO; +ROSU40TA63 PO; -ROSU40TA81 PO; +SENN-83 PO; +VITA200010 PO
== END ==
LOC: M SOG 07:55
PROVIDERS: ATTEND Orthopaedic Surgery
DX: Z96.651 Presence of right artificial knee joint (principal); Z47.1 Aftercare following joint replacement surgery

== ENCOUNTER 2023-11-08 09:04 | Outpatient (RCR) | payer OTHER, MEDICAID ==
[~2023-11-08 09:04] MED LIST changes: -ROSU40TA63 PO; +ROSU40TA81 PO; +SENN-187 PO; -SENN-83 PO
== END 2023-11-29 ==
LOC: M PT 09:04
PROVIDERS: ATTEND Orthopaedic Surgery
DX: M17.11 Unilateral primary osteoarthritis, right knee (principal)

== ENCOUNTER → 2024-03-07 | Outpatient (CLI) | payer OTHER, MEDICAID ==
[~2024-03-07] MED LIST changes: +ATOR-398 PO; -CYCL5TAB PO; +CYCL5TAB4 PO; -DOXY-323 PO; +DOXY-441 PO; -LIPI80TA PO; -POTA540T PO; +POTA540T5 PO
== END ==
LOC: M WHC 12:32
PROVIDERS: ATTEND Nurse Practitioner Family
DX: Z12.31 Encounter for screening mammogram for malignant neoplasm of breast (principal); R92.333 Mammographic heterogeneous density, bilateral breasts

== ENCOUNTER → 2024-03-16 | Outpatient (CLI) | payer OTHER, MEDICAID, MEDICARE | LOC: M SOG 07:53 | PROVIDERS: ATTEND Orthopaedic Surgery | DX: Z47.1 Aftercare following joint replacement surgery (principal); Z96.651 Presence of right artificial knee joint ==

== ENCOUNTER → 2024-05-22 | Outpatient (CLI) | payer OTHER, MEDICAID | LOC: M WUC 13:55 | PROVIDERS: ATTEND Nurse Practitioner Family | DX: M25.531 Pain in right wrist (principal); W01.10XA Fall on same level from slipping, tripping and stumbling with subsequent striking against unspecified object, initial encounter; S52.501A Unspecified fracture of the lower end of right radius, initial encounter for closed fracture; Y92.9 Unspecified place or not applicable; Y93.9 Activity, unspecified; Y99.9 Unspecified external cause status ==

== ENCOUNTER → 2024-09-29 | Outpatient (CLI) | payer OTHER, MEDICAID ==
[~2024-09-29] MED LIST changes: -RA T500C2 PO; +TURM500C10 PO
== END ==
LOC: M SOG 06:51
PROVIDERS: ATTEND Orthopaedic Surgery
DX: Z96.651 Presence of right artificial knee joint (principal); Z47.1 Aftercare following joint replacement surgery; Z53.9 Procedure and treatment not carried out, unspecified reason

== ENCOUNTER → 2024-10-24 | Outpatient (CLI) | payer OTHER, MEDICAID ==
[~2024-10-24] MED LIST changes: -IBUP-1022 PO; +IBUP600T42 PO
== END ==
LOC: M RAD 11:22
PROVIDERS: ATTEND Physician Assistant
DX: R05.3 Chronic cough (principal)